=== PATIENT | female | born 1950 | race African-American/Black ===

== ENCOUNTER → 2018-07-28 | Outpatient (CLI) | payer MEDICARE, OTHER ==
[2013-08-14 09:00] VITALS: BP 202/77
[~2018-07-28] MED LIST: BYSTOLIC2.5 MG PO; BYSTOLIC5 MG PO; CLON0.1T PO; DOXY50CA PO; HYDR12.58 PO; KRIL1CAP29 PO; MULT1TAB52 PO; OMEG10005 PO; VIT500LI PO; ZOLP5TAB5 PO
--- NOTE | 2018-07-28 17:57 | RAD ---
Examination: US GUID NDL PLACE/ASPI/BX History: Right breast mass and right axillary lymph nodes. Comparison/Correlation: 07/04/2018 mammogram and ultrasound examinations of the right breast performed at an outside facility Findings: Risks and benefits of ultrasound-guided core biopsy were discussed with the patient. Informed consent was obtained. Prior to procedure, ultrasound imaging was performed for localization purposes of the right breast 11:30 mass. Ultrasound imaging of the right axilla also was performed to image the lymph nodes present. A few enlarged lymph nodes are present with thickened cortices. Consent was obtained from the patient to biopsy 3 of these lymph nodes. Cleansing with ChloraPrep was performed at the right upper outer breast and axilla. Sterile drapes, sterile gel, and sterile probe cover were utilized. Lateral post was utilized to biopsy the right breast 11:30 mass. Approximately 8 cc 1 percent lidocaine was administered via a lateral approach utilizing ultrasound guidance. Scalpel incision was made and an introducer was placed. 4 samples were obtained by core biopsy technique utilizing a 12-gauge needle. Clip marker was then placed under ultrasound guidance. 7 cc lidocaine was administered in the right axilla and a small scalpel incision was made for purposes of biopsying 3 lymph nodes present. A total of 2 separate introducers were utilized. A total of 3 separate core biopsy needles were utilized. 4 samples of the most inferior of the lymph nodes with a thickened cortex were obtained and biopsy clip marker was placed. 3 samples of a lymph node slightly superior and posterior to this were also obtained and clip marker was placed. A slightly more superior and anterior lymph node was biopsied with 2 samples obtained and a clip marker was placed. The patient tolerated the procedure well without immediate complications. Impression: Successful core biopsy of the right upper outer breast mass and the 3 most thickened and enlarged right axillary lymph nodes. Specimens were sent to lab in 4 separate vials. Electronically signed by: Vini Barajas MD (07/28/2018 5:54 PM) [facility]
--- NOTE | 2018-07-28 18:13 | RAD ---
DATE: 07/28/2018 EXAM: DIGITAL DIAGNOSTIC RT HISTORY: The patient has just undergone ultrasound-guided biopsy of a right breast upper outer quadrant mass and right axillary lymph nodes. This study was interpreted with the benefit of Computerized Aided Detection (CAD). Breast Density: SCATTERED The breast parenchyma shows scattered fibroglandular densities. Breast parenchyma level B. FINDINGS: Biopsy clip marker is present just medial to the right upper outer breast mass. All of the 3 right axillary lymph nodes and surgical clips could not be included on exam despite attempts at extraction. Contralateral view imaging and lateral medial view imaging. A single lymph node with the biopsy clip marker is noted on the mediolateral view at the far posterior axillary level. IMPRESSION: Biopsy clip marker is identified adjacent to the right upper quadrant outer quadrant mass and within the right axillary lymph node. BI-RADS CATEGORY: 4 SUSPICIOUS ABNORMALITY- BIOPSY SHOULD BE CONSIDERED RECOMMENDED FOLLOW-UP: BIO BIOPSY RECOMMENDED PQRS compliance statement: Patient information was entered into a reminder system with a target due date pending biopsy results for the next mammogram. Mammography is a sensitive method for finding small breast cancers, but it does not detect them all and is not a substitute for careful clinical examination. A negative mammogram does not negate a clinically suspicious finding and should not result in delay in biopsying a clinically suspicious abnormality. "Our facility is accredited by the [employer] Mammography Program."
--- NOTE | 2018-07-30 15:06 | PATHOLOGY ---
[facility] Accession Number: [id number] . 01 Material submitted: . PART A: breast - RIGHT BREAST NODULE, 11:30, 4CFN. Modifiers: right PART B: lymph node - RIGHT AXILLA LYMPH NODE #1. Modifiers: right, axilla, 1 PART C: lymph node - RIGHT AXILLA LYMPH NODE #2. Modifiers: right, axilla, 2 PART D: lymph node - RIGHT AXILLA LYMPH NODE #3. Modifiers: right, axilla, 3 . 01 Clinical history: . Right breast mass . 02 Diagnosis: A. Breast tissue, right breast mass 11:30 needle biopsies: - INVASIVE DUCTAL CARCINOMA, HIGH GRADE. SEE COMMENT. . B. Segments of lymph node and fibroadipose tissue, right axilla lymph node #1 ultrasound guided needle biopsies: - Negative for tumor. . C. Segments of fibroadipose tissue, right axilla lymph node #2 ultrasound guided needle biopsies: - No lymph node identified - negative for tumor. . D. Segments of fibroadipose tissue and lymph node, right axilla lymph node #3 ultrasound guided needle biopsies: - Negative for tumor. [facility]/07/30/2018 . 02 Comment: Sections of the right breast mass needle biopsies reveal an invasive mammary carcinoma. The tumor shows little tubule formation, moderate to marked nuclear pleomorphism, and focally marked mitotic activity. There is a rare tumor associated calcification. There is no lymphovascular tumor invasion. The invasive carcinoma is associated with an inflamed reactive desmoplastic stroma, and measures up to 0.7 cm in greatest dimension on the glass slide. The morphologic findings are supportive of the diagnosis of an invasive high grade ductal carcinoma. Breast prognostic studies will be obtained on block A1, the results of which will be reported separately. . The axillary lymph node needle biopsies are examined at multiple levels. Sections of axillary lymph node #2 reveal fibroadipose tissue with no lymph node identified. Immunoperoxidase stains for AE1/AE3 are obtained on axillary lymph node #1 and axillary lymph node #3 needle biopsies and yield the following results: . AE1/AE3 (B1): Negative for tumor AE1/AE3 (B2): Negative for tumor AE1/AE3 (D1): Negative for tumor . Thus, there are a total of two axillary lymph nodes, both of which are negative for tumor. . The case is also examined by Dr. Ibarra, who concurs with the diagnoses. . (JPM/db; 07/29/2018) . Special stain performed: Immunoperoxidase stain for AE1/AE3 on B1, B2 and D1 . 02 Electronically signed: . Zeke Holliday MD, Pathologist NPI- [id number] . 01 Gross description: . A. Received in formalin labeled "Jelly Costa, right breast 11:30 4CFN," are multiple needle cores of yellow-anand fibrofatty tissue measuring 1.8 x 0.9 x 0.3 cm in aggregate dimensions. The tissue is submitted in its entirety in cassette A1 through A3. The cold ischemic time is 2 minutes. The total formalin fixation time is 10 hours and 28 minutes. . B. Received in formalin labeled "Jelly Costa, right axilla LN 1," are multiple needle cores of yellow-anand fibrofatty tissue measuring 2.2 x 1.0 x 0.3 cm in aggregate dimensions. The tissue is submitted in its entirety in cassette B1 through B3. The cold ischemic time is 5 minutes. The total formalin fixation time is 10 hours and 15 minutes. . C. Received in formalin labeled "Jelly Costa, right axilla LN 2," are multiple needle cores of yellow-anand fibrofatty tissue measuring 1.5 x 0.8 x 0.2 cm in aggregate dimensions. The tissue is submitted in its entirety in cassette C1 through C3. The cold ischemic time is 5 minutes. The total formalin fixation time is approximately 10 hours. . D. Received in formalin labeled "Jelly Costa, right axilla LN 3," are multiple needle cores of yellow-anand fibrofatty tissue measuring 1.3 x 0.6 x 0.3 cm in aggregate dimensions. The tissue is submitted in its entirety in cassette D1 through D3. The cold ischemic time is 5 minutes. The total formalin fixation time is approximately 10 hours. ([facility]; 07/28/2018) TOB/TOB . 02 Pathologist provided ICD-10: C50.911 . 02 CPT . 233007, 636265, 840304, 364349, E91995 Specimen Comment: A courtesy copy of this report has been sent to Specimen Comment: [phone], . Specimen Comment: Report sent to / DR GUERRA [facility]formed at: 01 [facility] [address] [facility] [address], [place] [id number] MD Percy Preston MD Phone: [phone] Performed at: 02 [facility] [address] [place], [place] [id number] MD Zeke Holliday MD Phone: [phone]
== END | disposition home or self-care (01) ==
LOC: US 09:35
PROVIDERS: ATTEND Family Medicine
DX: C50.411 Malignant neoplasm of upper-outer quadrant of right female breast (principal)
CPT/HCPCS: 19083; 38505; 77065; 88305; 88342; 88361; C1713; 19081; 76942

== ENCOUNTER → 2018-08-19 | Outpatient (CLI) | payer MEDICARE, OTHER ==
[2013-08-14 09:00] VITALS: BP 202/77
[2018-08-19 15:10] LABS: BASO % 0 % (0-3); EOS # 0.1 x10^3/uL (0.0-0.7); EOS % 1 % (0-3); HEMATOCRIT 42.8 % (36.0-47.0); HEMOGLOBIN 14.3 g/dL (12.0-15.5); LYMPH # 4.6 x10^3/uL (1.0-4.8); LYMPH % 36 % (24-48); MEAN CORPUSCULAR HEMOGLOBIN 30 pg (25-35); MEAN CORPUSCULAR HGB CONC 33 g/dL (31-37); MEAN CORPUSCULAR VOLUME 90 fL (79-100); MONO # 0.9 x10^3/uL (0.0-1.1); MONO % 7 % (0-9); NEUT # 7.1 x10^3uL (1.8-7.7); NEUT % 56 % (31-73); PLATELET COUNT 337 x10^3/uL (140-400); RED BLOOD COUNT 4.76 x10^6/uL (3.50-5.40); WHITE BLOOD COUNT 12.7 x10^3/uL (4.0-11.0)
[2018-08-19 15:35] LABS: ALBUMIN 4.1 g/dL (3.4-5.0); CALCIUM 10.2 mg/dL (8.5-10.1); GFR 66.3; POTASSIUM 3.6 mmol/L (3.5-5.1)
== END | disposition home or self-care (01) ==
LOC: SURGPAT 14:09
PROVIDERS: ATTEND Surgery
DX: Z01.818 Encounter for other preprocedural examination (principal); C50.911 Malignant neoplasm of unspecified site of right female breast
CPT/HCPCS: 36415; 80048; 82040; 85025

== ENCOUNTER 2018-08-26 08:54 | Inpatient (IN) | payer MEDICARE, OTHER ==
[2018-08-26] VITALS (10 sets, daily range): BP systolic 126–165; BP diastolic 43–65
[~2018-08-26] VITALS: Ht 175.3 cm; Wt 100.2 kg
[~2018-08-26 08:54] MED LIST changes: +HYDROmorphone 2 MG/ML VIAL IV PRN; +ISOSULFAN BLUE 50 MG/5 ML VIAL. SQ ONE; +IV RINGERS,LACTATED 1000ML 1,000 ML IV SCH; +MORPHINE SULFATE 2 MG/ML VIAL. IV PRN; +ONDANSETRON PF 4 MG/2 ML VIAL. IV PRN; +PROCHLORPERAZINE 10 MG/2 ML VIAL. IV PRN; +ceFAZolin 2GM PREMIX 2 GM/50 ML BAG IV ONE; +fentaNYL PF VIAL 100 MCG/2 ML VIAL IV PRN
[2018-08-26] MEDS ORDERED: fentaNYL PF VIAL 100 MCG/2 ML VIAL ONE ×3 (09:57→13:15)
[2018-08-26] MEDS ORDERED: LIDOCAINE 2% PF 5 ML VIAL. ONE (09:58)
[2018-08-26] MEDS ORDERED: DEXAMETHASONE SOD PHOS 4 MG/ML VIAL ONE (09:58)
[2018-08-26] MEDS ORDERED: MIDAZOLAM HCL/PF 2 MG/2 ML VIAL. ONE (09:58)
[2018-08-26] MEDS ORDERED: ONDANSETRON PF 4 MG/2 ML VIAL. ONE (09:58)
[2018-08-26] MEDS ORDERED: PROPOFOL 20 ML IV ONE (09:58)
--- NOTE | 2018-08-26 10:50 | RAD ---
Right breast radionuclide sentinel node localization, 08/26/2018: History: Right breast cancer. Under aseptic conditions and utilizing ethyl chloride spray for topical anesthesia a total of 1 mCi of filtered technetium 99m sulfur colloid was injected subdermally in the right periareolar region in 4 divided doses. No imaging was performed. The patient was sent to surgery in good condition.
[2018-08-26] MEDS ORDERED: ONDANSETRON PF 4 MG/2 ML VIAL. IV PRN (13:00)
[2018-08-26] MEDS ORDERED: cloNIDine HCL 0.1 MG TABLET PO PRN (13:00)
[2018-08-26] MEDS ORDERED: diphenhydrAMINE HCL 25 MG CAPSULE PO PRN (13:00)
[2018-08-26] MEDS ORDERED: ZOLPIDEM 5 MG TABLET. PO PRN (13:00)
[2018-08-26] MEDS ORDERED: HYDROcodone/APAP 5/325MG 1 TAB TABLET PO PRN (13:00)
[2018-08-26] MEDS ORDERED: HYDROmorphone 2 MG/ML VIAL IV PRN (13:00)
[2018-08-26] MEDS ORDERED: 0.9 % SODIUM CHLORIDE 10 ML DISP.SYRIN. IV PRN (13:00)
--- NOTE | 2018-08-26 13:01 | PDOC ---
BRIEF OPERATIVE NOTE Date: August 26, 2018 Pre-Op Diagnosis invasive carcinoma right breast Post-Op Diagnosis same Procedure Performed modified radical mastectomy Surgeon Jimmy Anesthesia Type: General Blood Loss 50cc IV Fluid 600cc Specimens Obtained right breast, stitch at 3:00 right axillary contents Findings no sentinel node identified Complications none BRIAN ARAGON MD August 26, 2018 13:01
[2018-08-26] MEDS ORDERED: LABETALOL 20 MG/4 ML DISP.SYRIN. IVP PRN (13:30)
--- NOTE | 2018-08-26 13:36 | OP ---
DATE OF SURGERY: 08/26/2018 PREOPERATIVE DIAGNOSIS: Invasive carcinoma, right breast. POSTOPERATIVE DIAGNOSIS: Invasive carcinoma, right breast. PROCEDURE: Modified radical mastectomy. SURGEON: Brian Aragon MD. ANESTHESIA: General LMA. ESTIMATED BLOOD LOSS: 50 mL. INTRAVENOUS FLUIDS: 600 mL. OPERATIVE REPORT: The patient brought to the operating suite after going to nuclear medicine for injection of radioisotope for sentinel node. She was brought to the OR, given a general LMA and the right breast, arm and chest were prepped and draped in usual sterile fashion. A 4 mL of Lymphazurin were injected intradermally, circumareolarly in the quadrant corresponding to that of the tumor. Gentle breast massage for 4 minutes. A marking pen was used to outline the elliptical skin incision on the breast and the superior skin flap was incised and developed with cautery dissection down to the chest wall. We followed the tail of the breast up into the axilla, but despite careful searching, no blue stained nodes were seen nor was there any activity with the C-Trak. As such, the inferior skin flap was made, developed with cautery and the breast swept off the chest wall from medial to lateral. Because I was unable to identify sentinel node, I proceeded with an axillary dissection. The contents of the axilla inferior to the axillary vein were swept out en bloc taking care to avoid injury to the thoracodorsal neurovascular bundle or the long thoracic nerve. Good hemostasis was present. When a correct sponge count was obtained, 2 drains were placed. The lateral drain into the axilla, the medial drain under the superior skin flap. Each secured with a silk stitch and again we checked for hemostasis. When present and a second sponge count was correct, the wound was closed with interrupted inverted 3-0 Vicryl in the subcutaneous tissue, subcuticular 4-0 Monocryl for the skin. Sterile dressing applied. The patient awakened from her anesthetic and taken to the recovery room in satisfactory condition. BRIAN ARAGON MD DR: MARLON/gumaro JOB#: [id number] / [id number]
[2018-08-26] MEDS: POTASSIUM CL 20MEQ-0.45% NACL 1,000 ML IV SCH (16:36)
[2018-08-26] MEDS: HYDROcodone/APAP 5/325MG 1 TAB TABLET PO PRN ×2 (17:28→20:53)
[2018-08-26] MEDS: DOCUSATE SODIUM 100 MG CAPSULE. PO SCH (20:51)
[2018-08-26] MEDS: METOPROLOL TART IMMED RELEASE 25 MG TABLET. PO SCH (20:53)
[2018-08-26] MEDS ORDERED: DOXYCYCLINE HYCLATE 20 MG PO SCH (21:00)
[2018-08-27] MEDS: POTASSIUM CL 20MEQ-0.45% NACL 1,000 ML IV SCH ×2 (00:09→10:00)
--- NOTE | 2018-08-27 00:12 | NUR ---
906.31 ml on IV spreadsheet from 0011 was for IVF given during day shift. IVF still running. This nurse scanned next bag of IVF.
[2018-08-27 03:37] VITALS: BP 130/45
[2018-08-27 07:00] VITALS: BP 177/55
[2018-08-27 08:02] LABS: CALCIUM 8.5 mg/dL (8.5-10.1); CREATININE 0.7 mg/dL (0.6-1.0); GFR 100.1; POTASSIUM 3.6 mmol/L (3.5-5.1)
[2018-08-27] MEDS ORDERED: FUROSEMIDE 20 MG TABLET PO SCH (09:00)
[2018-08-27] MEDS ORDERED: ENOXAPARIN 40 MG/0.4 ML SYRINGE. SQ SCH (09:00)
[2018-08-27] MEDS: METOPROLOL TART IMMED RELEASE 25 MG TABLET. PO SCH (09:15)
[2018-08-27] MEDS: DOCUSATE SODIUM 100 MG CAPSULE. PO SCH (09:15)
--- NOTE | 2018-08-27 09:40 | PDOC ---
SURGICAL PROGRESS NOTE Subjective no complaints at bedside Vital Signs Vital Signs Date Time Temp Pulse Resp B/P (MAP) Pulse Ox O2 Delivery O2 Flow Rate FiO2 08/27/18 09:15 72 177/55 08/27/18 07:00 97.9 18 98 Room Air 97.9 08/26/18 17:28 10.0 I&O Intake and Output 08/27/18 07:00 Intake Total 2036.31 ml Output Total 230 ml Balance 1806.31 ml Intake Oral 480 ml IV Total 1556.31 ml Drainage Total 180 ml Estimated Blood Loss 50 ml # Voids 1 PATIENT HAS A ROSENTHAL: No General: Alert, Oriented X3, No acute distress Skin: Other (GUILLE drains, one with bloody return, one with serosanguineous) Labs Laboratory Tests Test 08/26/18 13:47 08/26/18 17:09 08/26/18 21:04 08/27/18 06:45 Glucose (Fingerstick) 125 mg/dL (70-99) 158 mg/dL (70-99) 173 mg/dL (70-99) Sodium Level 140 mmol/L (136-145) Potassium Level 3.6 mmol/L (3.5-5.1) Chloride Level 104 mmol/L (98-107) Carbon Dioxide Level 26 mmol/L (21-32) Anion Gap 10 (6-14) Blood Urea Nitrogen 9 mg/dL (7-20) Creatinine 0.7 mg/dL (0.6-1.0) Estimated GFR (Cockcroft-Gault) 100.1 Glucose Level 140 mg/dL (70-99) Calcium Level 8.5 mg/dL (8.5-10.1) Test 08/27/18 07:38 Glucose (Fingerstick) 126 mg/dL (70-99) Laboratory Tests Test 08/26/18 13:47 08/26/18 17:09 08/26/18 21:04 08/27/18 06:45 Glucose (Fingerstick) 125 mg/dL (70-99) 158 mg/dL (70-99) 173 mg/dL (70-99) Sodium Level 140 mmol/L (136-145) Potassium Level 3.6 mmol/L (3.5-5.1) Chloride Level 104 mmol/L (98-107) Carbon Dioxide Level 26 mmol/L (21-32) Anion Gap 10 (6-14) Blood Urea Nitrogen 9 mg/dL (7-20) Creatinine 0.7 mg/dL (0.6-1.0) Estimated GFR (Cockcroft-Gault) 100.1 Glucose Level 140 mg/dL (70-99) Calcium Level 8.5 mg/dL (8.5-10.1) Test 08/27/18 07:38 Glucose (Fingerstick) 126 mg/dL (70-99) Assessment/Plan POD 1 right MRM home with drains f/u in office, two days BRIAN ARAGON MD August 27, 2018 09:40
--- NOTE | 2018-08-27 09:43 | DISCH ---
DISCHARGE INSTRUCTIONS Condition on Discharge Condition on Discharge: Stable Activity After Discharge Activity Instructions for Disc: Activity as tolerated Lifting Instructions after Dis: No heavy lifting Driving Instructions after Dis: Do not drive Diet after Discharge Diet after Discharge: Regular Wound Incision Care Wound/Incision Care: Ice to area for comfort Follow-Up Follow up with: Jimmy 08/29 BRIAN ARAGON MD August 27, 2018 09:43
--- NOTE | 2018-08-27 10:29 | NUR ---
SW following for discharge planning. Discussed with RN, pt is from home with , gets around fine. RN advised no SW needs and anticipates pt is discharging home with self care today, and will follow up with Dr. Marquez on Saturday.
[2018-08-27 11:00] VITALS: BP 176/53
[2018-08-27] MEDS: HYDROcodone/APAP 5/325MG 1 TAB TABLET PO PRN (13:41)
--- NOTE | 2018-08-27 16:46 | NUR ---
Pt was discharged to home at 1330 in stable condition with all personal belongings after reviewing all pertinent information including education, medications, follow up and at home care. Pt was escorted by staff and family and driven home by her .
--- NOTE | 2018-09-02 14:06 | PATHOLOGY ---
[facility] Accession Number: [id number] . 01 Material submitted: . PART A: breast - RIGHT BREAST. Modifiers: right PART B: axillary tail of breast - RIGHT AXILLARY CONTENT. Modifiers: right . 01 Clinical history: . Breast cancer . 02 Diagnosis: A. Breast, right simple mastectomy: - INVASIVE DUCTAL CARCINOMA, HIGH-GRADE, FORMING A TUMOR MASS OF THE UPPER OUTER QUADRANT MEASURING 2.1 CM IN GREATEST DIMENSION. - INVASIVE DUCTAL CARCINOMA IS FOCALLY 1.5 MM FROM THE CLOSEST INKED DEEP MARGIN OF RESECTION. - DUCTAL CARCINOMA IN SITU, LOW TO FOCAL INTERMEDIATE GRADE, CRIBRIFORM AND SOLID TYPE, MEDIAL TO MASS. - DCIS IS APPROXIMATELY 5 MM FROM THE CLOSEST INKED DEEP MARGIN OF RESECTION. - Previous biopsy site changes. - Proliferative fibrocystic changes with focal moderate/florid ductal epithelial hyperplasia. - Sclerosing adenosis, focal. - Fibroadenomatous change, focal. . B. Segments of adipose tissue and lymph nodes, right axillary contents: - Nine lymph nodes negative for tumor and showing focal previous biopsy site changes (0/9). (JPM:director of counseling:db; 08/29/2018) . Surgical Pathology Cancer Case Summary Protocol posting date: May 2018 . INVASIVE CARCINOMA OF THE BREAST: Resection Procedure ___ Total mastectomy (including nipple-sparing and skin-sparing mastectomy) Specimen Laterality ___ Right . Tumor Site ___ Upper outer quadrant Tumor Size ___ Greatest dimension of largest invasive focus >1 mm: 21 mm Histologic Type ___ Invasive carcinoma of no special type (invasive ductal carcinoma, not otherwise specified) . Histologic Grade ([place] Histologic Score) Glandular (Acinar)/Tubular Differentiation ___ Score 3 (<10% of tumor area forming glandular/tubular structures) Nuclear Pleomorphism ___ Score 2 (cells larger than normal with open vesicular nuclei, visible nucleoli, and moderate variability in both size and shape) Mitotic Rate ___ Score 3 Overall Grade ___ Grade 3 (scores of 8 or 9) . Tumor Focality ___ Single focus of invasive carcinoma Ductal Carcinoma In Situ (DCIS) ___ Present . Architectural Patterns ___ Cribriform ___ Solid . Nuclear Grade ___ Grade II (intermediate) Necrosis ___ Present, focal (small foci or single cell necrosis) Lobular Carcinoma In Situ (LCIS) ___ No LCIS in specimen . Margins Invasive Carcinoma Margins ___ Uninvolved by invasive carcinoma Distance from closest margin: 1.5 mm Specify closest margin: Deep margin DCIS Margins ___ Uninvolved by DCIS Distance from closest margin: 5 mm Specify closest margin: Deep margin . Regional Lymph Nodes ___ Uninvolved by tumor cells Number of Lymph Nodes Examined: 9 Number of Sherman Nodes Examined: 0 Treatment Effect ___ No known presurgical therapy Lymphovascular Invasion ___ Not identified Dermal Lymphovascular Invasion ___ Not identified . Pathologic Stage Classification (pTNM, AJCC 8th Edition) Primary Tumor (pT) ___ pT2: Tumor >20 mm but less than or equal to 50 mm in greatest dimension . Regional Lymph Nodes (pN) Category (pN) ___ pN0: No regional lymph node metastasis identified . Additional Pathologic Findings Specify: See diagnoses . Microcalcifications ___ Present in DCIS . Clinical History ___ Palpable mass . Radiologic Finding ___ Mass or architectural distortion (JPM/db; 08/29/2018) . [facility]/09/02/2018 . 02 Electronically signed: . Zeke Holliday MD, Pathologist NPI- [id number] . 01 Gross description: . A. Received in formalin labeled" Jelly Costa, right breast, stitch at 3:00 ", is an oriented right simple mastectomy specimen weighing 564 g and measuring 22.5 x 15 x 4.0 cm, with an overlying bruner-brown ellipse of skin, 21.5 x 10.5 cm containing a 5.7 x 5.0 cm nipple-areola complex with a 1.2 cm in diameter everted nipple. The deep margin is covered by smooth fascia with no skeletal muscle present. The specimen is oriented with sutures: Marking the 3 o'clock position. The specimen is inked as follows: anterior/superior = blue, anterior/inferior = green and deep black. Specimen is serial sectioned from lateral to medial to reveal a anand-white solid mass with previous biopsy changes consisting of white seeds, with infiltrative borders measuring 2.1 x 1.4 x 1.0 cm in the upper outer quadrant at 1130, and is approximately 4 cm from the nipple and is 0.4 cm from the closest deep margin and greater than 2.5 cm from the remaining margins. The remaining parenchyma is predominantly yellow, soft fatty tissue with anand-white fibrous strands interspersed in the approximate stroma-fat ratio of 80:20. (Cassettes A2-A9 are contiguous sections from medial to lateral to include mass). Senior Case Manager tissue is submitted as follows: A1. Skin and nipple. A2. Uninvolved parenchyma on the medial aspect of mass. A3-A8. Mass (greatest dimension), A7 = mass closest to deep margin. A9. Uninvolved parenchyma on the lateral aspect of mass. A10. Superior anterior margin closest to mass. A11. Inferior anterior margin closest to mass. A12. Superior margin closest to mass. A13. Inferior margin closest to mass. A14. Medial margin closest to mass. A15. Lateral margin closest to mass. A16 - A17. Upper inner quadrant. A18-A19. Lower inner quadrant. A20-A21. Lower outer quadrant. A22-A23. Upper outer quadrant. Specimen excised at: 1154 on 08/26/18, placed in formalin at: 1155 on 08/26/18, formalin exposure: Approximately 35 hours. . B. The specimen is received in formalin, labeled "Jelly Costa, right axillary contents", are multiple irregular fragments of yellow lobulated adipose tissue measuring 9.0 x 7.8 x 2.7 cm in aggregate. Eight possible positive, bruner-pink, rubbery lymph nodes are identified ranging from 1.1 x 0.7 x 0.5 cm up to 2.4 x 1.7 x 0.8 cm. There are three lymph nodes with hemorrhagic, cystic, focal areas, probable previous biopsy site. The lymph nodes are entirely submitted as follows: B1-B2. Single lymph node, serially sectioned with possible previous biopsy site. B3. Single lymph node, serially sectioned with possible previous biopsy site. B4. Single lymph node, serially sectioned with possible previous biopsy site. B5-B8. Single lymph node, serially sectioned in each cassette. B9. Two lymph nodes, serially sectioned, one inked black. ([facility]; 08/27/2018) SHS/SHS . 02 Pathologist provided ICD-10: C50.911, D05.11 . 02 CPT . 675267, 177524 Specimen Comment: A courtesy copy of this report has been sent to Specimen Comment: [phone], . Specimen Comment: Report sent to / DR GUERRA Performed at: 01 [facility] [address] [facility] [address], [place] [id number] MD Percy Preston MD Phone: [phone] Performed at: [address] [facility] [address] [place], [place] [id number] MD Zeke Holliday MD Phone: [phone]
== END 2018-08-27 13:30 | disposition home or self-care (01) | DRG 583 ==
LOC: SURG 08:54 → 4 NORTH 13:00
PROVIDERS: ADMIT Surgery; ATTEND Surgery
PROC: 0HTT0ZZ Resection of Right Breast, Open Approach (ICD-10-PCS; principal; 2018-08-26 10:30)
DX: C50.911 Malignant neoplasm of unspecified site of right female breast (principal); I10 Essential (primary) hypertension; E11.9 Type 2 diabetes mellitus without complications
CPT/HCPCS: 36415; 38792; 80048; 82962; 88307; 96374; A7015; A9541; J0696; J1100; J1650; J2001; J2250; J2270; J2405; J2704; J3010; J3490; J7120; Q9968

== ENCOUNTER 2018-08-30 06:07 | Emergency (ER) | payer MEDICARE, OTHER ==
[~2018-08-30] VITALS: Ht 180.3 cm; Wt 100.2 kg
[~2018-08-30 06:07] MED LIST changes: -HYDROmorphone 2 MG/ML VIAL IV PRN; -ISOSULFAN BLUE 50 MG/5 ML VIAL. SQ ONE; -IV RINGERS,LACTATED 1000ML 1,000 ML IV SCH; -MORPHINE SULFATE 2 MG/ML VIAL. IV PRN; -ONDANSETRON PF 4 MG/2 ML VIAL. IV PRN; -PROCHLORPERAZINE 10 MG/2 ML VIAL. IV PRN; -ceFAZolin 2GM PREMIX 2 GM/50 ML BAG IV ONE; -fentaNYL PF VIAL 100 MCG/2 ML VIAL IV PRN
[2018-08-30 06:28] VITALS: BP 197/99
--- NOTE | 2018-08-30 06:56 | PHYS DOC ---
Past Medical History Past Medical History: Diabetes-Type II Past Surgical History: Hysterectomy Alcohol Use: Occasionally Drug Use: None Adult General Chief Complaint Chief Complaint: POST-OP PROBLEM HPI HPI Patient is a 68 year old AA female who is s/p R mastectomy post-op day 5 who presents with displacement of GUILLE drain. Patient states she twisted this morning and felt a sharp sensation noticed that her GUILLE came out. Patient reports only minimal bleeding from drain insertion site in had decreased reports approximately 2 ounces of output over the past 24 hours. Patient and plans on having drain pulled on Saturday per Dr. Marquez. No other significant acute symptoms or complaints. [] Review of Systems Review of Systems ROS as per HPI All other systems were reviewed and found to be within normal limits, except as documented in this note. Allergies Allergies Allergies Coded Allergies Type Severity Reaction Last Updated Verified lidocaine Allergy Intermediate Rash 08/26/18 Yes Physical Exam Physical Exam Constitutional: Well developed, well nourished, no acute distress, non-toxic appearance. [] HENT: Normocephalic, atraumatic, bilateral external ears normal, oropharynx moist, no oral exudates, nose normal. [] Eyes: PERRLA, EOMI, conjunctiva normal, no discharge. [] Lungs & Thorax: Bilateral breath sounds clear to auscultation [] Skin: Right chest wall, GUILLE drain insertion wound open, min right red blood on overlying bandage, bleeding controlled. Appropriate post-op tenderness. [] Back: No tenderness. [] Extremities: No tenderness, no cyanosis, no clubbing, ROM intact, no edema. [] Neurologic: Alert and oriented X 3, normal motor function, normal sensory function, no focal deficits noted. [] Psychologic: Affect normal, judgement normal, mood normal. [] Current Patient Data Vital Signs Vital Signs Date Time Temp Pulse Resp B/P (MAP) Pulse Ox O2 Delivery O2 Flow Rate FiO2 08/30/18 06:28 98.2 82 17 197/99 (131) 98 Room Air 98.2 EKG EKG [] Radiology/Procedures Radiology/Procedures [] Course & Med Decision Making Course & Med Decision Making Pertinent Labs and Imaging studies reviewed. (See chart for details) [Dr. Sullivan fabrication and layout craftsman for Dr. Marquez notified of patient ED visit. Patient to keep follow up appt with Dr. Marquez as scheduled and return to the ED if complications. ] Akhil Disclaimer Dragon Disclaimer This electronic medical record was generated, in whole or in part, using a voice recognition dictation system. Departure Departure Impression: Primary Impression: Post-operative complication Disposition: 01 HOME, SELF-CARE Condition: GOOD Additional Instructions: Please keep mastectomy site bandaged and follow up with Dr. Marquez as scheduled. Return to the ED if furhter concerns. DENA BLACK DO August 30, 2018 06:56
== END 2018-08-30 06:45 | disposition home or self-care (01) ==
LOC: ER 06:07
DX: T85.698A Other mechanical complication of other specified internal prosthetic devices, implants and grafts, initial encounter (principal); E11.9 Type 2 diabetes mellitus without complications; E78.00 Pure hypercholesterolemia, unspecified; Z90.11 Acquired absence of right breast and nipple; Z88.4 Allergy status to anesthetic agent; Y83.8 Other surgical procedures as the cause of abnormal reaction of the patient, or of later complication, without mention of misadventure at the time of the procedure; Y92.89 Other specified places as the place of occurrence of the external cause
CPT/HCPCS: 99281

== ENCOUNTER → 2018-09-23 | Outpatient (CLI) | payer MEDICARE, OTHER ==
[2018-09-22 09:15] VITALS: BP 159/50
[~2018-09-23] MED LIST changes: +HYDR-2761 PO
--- NOTE | 2018-09-23 13:13 | CARD ---
MR#: [id number] Date of Study: 09/23/2018 Ordering Physician: IDA BABCOCK, Referring Physician: IDA BABCOCK Tech: Sendy Hernandez RDCS APPROVED REPORT EXAM: Two-dimensional and M-mode echocardiogram with Doppler and color Doppler. Other Information Quality : AverageHR: 76bpm Rhythm : NSR INDICATION Breast Cancer 2D DIMENSIONS RVDd2.8 (2.9-3.5cm)Left Atrium(2D)4.0 (1.6-4.0cm) IVSd1.0 (0.7-1.1cm)Aortic Root(2D)3.0 (2.0-3.7cm) LVDd5.9 (3.9-5.9cm)LVOT Diameter1.9 (1.8-2.4cm) PWd0.9 (0.7-1.1cm)LVDs4.3 (2.5-4.0cm) FS (%) 27.1 %SV88.9 ml LVEF(%)52.0 (>50%) M-Mode DIMENSIONS Left Atrium(MM)4.17 (2.5-4.0cm)Aortic Root2.88 (2.2-3.7cm) Aortic Valve AoV Peak Cm.104.8cm/sAoV VTI22.2cm AO Peak GR.4.4mmHgLVOT Peak Cm.85.0cm/s AO Mean GR.2mmHgAVA (VMAX)2.39cm2 MAGDI (VTI)2.40cm2 Mitral Valve MV E Xzfzyfdn834.8cm/sMV DECEL IIQT972mz MV A Sczkjxxq88.8cm/sE/A Ratio1.4 Pulmonary Valve PV Peak Ivoaywpc94.0cm/s LEFT VENTRICLE The left ventricle is normal size. There is normal left ventricular wall thickness. Left ventricle sy stolic function is normal. The Ejection Fraction is 50-55%. There is normal LV segmental wall motion. Transmitral Doppler flow pattern is Grade II-pseudonormal filling dynamics. RIGHT VENTRICLE The right ventricle is normal size. There is normal right ventricular wall thickness. The right ventr icular systolic function is normal. ATRIA The left atrium is mildly dilated. The right atrium size is normal. The interatrial septum is intact with no evidence for an atrial septal defect or patent foramen ovale as noted on 2-D or Doppler imagi ng. AORTIC VALVE The aortic valve is calcified but opens well. The aortic valve is trileaflet. Doppler and Color Flow revealed no significant aortic regurgitation. There is no significant aortic valvular stenosis. There is no aortic valvular vegetation. MITRAL VALVE The mitral valve is normal in structure and function. There is no evidence of mitral valve prolapse. There is no mitral valve stenosis. Doppler and Color-flow revealed mild mitral regurgitation. TRICUSPID VALVE The tricuspid valve is normal in structure and function. Doppler and Color Flow revealed no tricuspid valve regurgitation noted. There is no tricuspid valve prolapse or vegetation. There is no tricuspid valve stenosis. PULMONIC VALVE Doppler and Color Flow revealed trace pulmonic valvular regurgitation. There is no pulmonic valvular stenosis. GREAT VESSELS The aortic root is normal in size. The ascending aorta is normal in size. The IVC is normal in size a nd collapses >50% with inspiration. PERICARDIAL EFFUSION There is no evidence of significant pericardial effusion. Critical Notification Critical Value: No <Conclusion> Left ventricle systolic function is normal. The Ejection Fraction is 50-55%. There is normal LV segmental wall motion. Doppler and Color-flow revealed mild mitral regurgitation. Normal global longitudinal strain rates. Signed by : Charlie Dowling, Electronically Approved : 09/23/2018 13:12:54
== END | disposition home or self-care (01) ==
LOC: ECHO 09:34
PROVIDERS: ATTEND Internal Medicine Hematology & Oncology
DX: I08.0 Rheumatic disorders of both mitral and aortic valves (principal); C50.911 Malignant neoplasm of unspecified site of right female breast
CPT/HCPCS: 93306

== ENCOUNTER 2018-11-03 08:39 | Day surgery (SDC) | payer MEDICARE, OTHER ==
[~2018-11-03] VITALS: Ht 175.3 cm; Wt 91.6 kg
[~2018-11-03 08:39] MED LIST changes: +HEPARIN SODIUM 5,000 UNIT in IV NORMAL SALINE 500ML BAG 500 ML IRR ONE; +HYDR25TA10 PO; +HYDROmorphone 2 MG/ML VIAL IV PRN; +IV RINGERS,LACTATED 1000ML 1,000 ML IV SCH; +MORPHINE SULFATE 2 MG/ML VIAL. IV PRN; +NEOMY/BACITR/POLYMYXIN OINT PACKET. TP ONE; +ONDANSETRON PF 4 MG/2 ML VIAL. IV PRN; +PROCHLORPERAZINE 10 MG/2 ML VIAL. IV PRN; +fentaNYL PF VIAL 100 MCG/2 ML VIAL IV PRN
[2018-11-03] MEDS ORDERED: PROPOFOL 20 ML IV ONE (08:46)
[2018-11-03] MEDS ORDERED: DEXAMETHASONE SOD PHOS 4 MG/ML VIAL ONE (08:46)
[2018-11-03] MEDS ORDERED: ONDANSETRON PF 4 MG/2 ML VIAL. ONE (08:46)
[2018-11-03] MEDS ORDERED: fentaNYL PF VIAL 100 MCG/2 ML VIAL ONE (08:47)
[2018-11-03] MEDS ORDERED: BUPIVAC MPF-EPI 0.5%-1:200000 30 ML VIAL. ONE (08:59)
[2018-11-03] MEDS ORDERED: BUPIVACAINE MPF 0.5% 30 ML VIAL. ONE (08:59)
[2018-11-03] MEDS ORDERED: ceFAZolin 2GM PREMIX 2 GM/50 ML BAG IV ONE (09:00)
[2018-11-03 09:48] LABS: BASO % 1 % (0-3); EOS % 0 % (0-3); HEMATOCRIT 36.2 % (36.0-47.0); LYMPH # 1.7 x10^3/uL (1.0-4.8); LYMPH % 18 % (24-48); MEAN CORPUSCULAR HEMOGLOBIN 30 pg (25-35); MEAN CORPUSCULAR HGB CONC 33 g/dL (31-37); MEAN CORPUSCULAR VOLUME 90 fL (79-100); MONO # 0.4 x10^3/uL (0.0-1.1); MONO % 5 % (0-9); NEUT # 7.1 x10^3/uL (1.8-7.7); NEUT % 77 % (31-73); PLATELET COUNT 239 x10^3/uL (140-400); RED BLOOD COUNT 4.03 x10^6/uL (3.50-5.40); WHITE BLOOD COUNT 9.3 x10^3/uL (4.0-11.0)
[2018-11-03 09:58] LABS: CALCIUM 9.3 mg/dL (8.5-10.1); CREATININE 0.8 mg/dL (0.6-1.0); GFR 85.8; POTASSIUM 3.6 mmol/L (3.5-5.1)
[2018-11-03 09:59] LABS: ALBUMIN 3.6 g/dL (3.4-5.0)
--- NOTE | 2018-11-03 11:09 | PDOC ---
BRIEF OPERATIVE NOTE Date: Nov 03, 2018 Pre-Op Diagnosis invasive breast cancer, needs venous access for chemotherapy Post-Op Diagnosis same Procedure Performed placement left subclavian power port Surgeon Jimmy Anesthesia Type: General (LMA) Blood Loss 5cc IV Fluid 100cc Specimens Obtained none Findings post op CXR shows tip of catheter in the SVC without evidence of a pneumothorax Complications none Operative Note Wk # [id number] BRIAN ARAGON MD Nov 03, 2018 11:09
--- NOTE | 2018-11-03 11:13 | RAD ---
Exam performed: One view chest. Indication: Post Port-A-Cath placement Date of Service: 11/03/2018 12:00 AM Comparison: None available. Single AP upright portable view chest findings: Cardiomediastinal silhouette is within upper limits of normal. There is a left-sided Port-A-Cath in place. No acute infiltrates, effusion or pneumothorax is detected. The bony structures are normal. Impression: No acute cardiopulmonary process is detected. Electronically signed by: Alexa Briseno MD (11/03/2018 11:10 AM) [place]
--- NOTE | 2018-11-03 11:20 | OP ---
DATE OF SURGERY: 11/03/2018 PREOPERATIVE DIAGNOSIS: Invasive carcinoma, left breast needs venous access for adjuvant chemotherapy. POSTOPERATIVE DIAGNOSIS: Invasive carcinoma, left breast needs venous access for adjuvant chemotherapy. PROCEDURE: Placement of a left subclavian PowerPort. SURGEON: Brian Aragon MD ANESTHESIA: General LMA. ESTIMATED BLOOD LOSS: 5 mL. INTRAVENOUS FLUIDS: 100 mL. DESCRIPTION OF PROCEDURE: The patient brought to the OR, given a general LMA and the left infraclavicular area was prepped and draped in usual sterile fashion. With the bed in Trendelenburg, 0.5% plain Marcaine was infiltrated a fingerbreadth below the clavicle at the junction of medial two-thirds and lateral one-third incision was made. A seeker needle used to identify the subclavian vein and a guidewire advanced under fluoroscopic observation into the superior vena cava. Pocket incision with local anesthetic, incised and developed. Catheter laid on the patient's chest with fluoro guidance, was cut to an appropriate length. Catheter was then tunneled from the insertion site to the pocket site where it was attached to the reservoir. The reservoir was seated in the pocket. Again, in Trendelenburg position under fluoroscopic observation, the dilator and sheath were passed over the wire. The wire was removed. The dilator was removed and the catheter was threaded through the sheath and the sheath was then removed. There was good flow into and out of the catheter at completion of placement. Table returned to level. Pocket incision closed with interrupted 3-0 Vicryl. Skin incisions closed with subcuticular 4-0 Monocryl and Steri-Strips. A right angle Bedoya needle administration set was used to access the reservoir. There was good blood return and the catheter flushed well. Sterile dressing applied. Postop upright chest x-ray showed the tip of the catheter to reside in superior vena cava without evidence of a pneumothorax. The patient tolerated the procedure well and was taken to the postoperative area in stable condition. BRIAN ARAGON MD DR: MARLON/gumaro JOB#: [id number] / [id number]
[2018-11-03 12:02] VITALS: BP 196/73
== END 2018-11-03 12:32 | disposition home or self-care (01) ==
LOC: SURG 08:39
PROVIDERS: ATTEND Surgery
DX: Z45.2 Encounter for adjustment and management of vascular access device (principal); C50.911 Malignant neoplasm of unspecified site of right female breast; I10 Essential (primary) hypertension; E11.9 Type 2 diabetes mellitus without complications; Z79.84 Long term (current) use of oral hypoglycemic drugs; Z79.2 Long term (current) use of antibiotics
CPT/HCPCS: 36415; 36561; 71045; 77001; 80048; 82040; 85025; A7015; C1788; J0696; J1100; J1644; J2405; J2704; J3010; J3490; J7040; 76000

== ENCOUNTER → 2019-02-03 | Outpatient (CLI) | payer MEDICARE, OTHER ==
[~2019-02-03] MED LIST changes: -HEPARIN SODIUM 5,000 UNIT in IV NORMAL SALINE 500ML BAG 500 ML IRR ONE; -HYDROmorphone 2 MG/ML VIAL IV PRN; -IV RINGERS,LACTATED 1000ML 1,000 ML IV SCH; -MORPHINE SULFATE 2 MG/ML VIAL. IV PRN; -NEOMY/BACITR/POLYMYXIN OINT PACKET. TP ONE; -ONDANSETRON PF 4 MG/2 ML VIAL. IV PRN; -PROCHLORPERAZINE 10 MG/2 ML VIAL. IV PRN; -fentaNYL PF VIAL 100 MCG/2 ML VIAL IV PRN
--- NOTE | 2019-02-03 10:24 | CARD ---
MR#: [id number] Date of Study: 02/03/2019 Ordering Physician: IDA BABCOCK, Referring Physician: Pooja SOUTH: Maribell Garcia APPROVED REPORT EXAM: Two-dimensional and M-mode echocardiogram with Doppler and color Doppler. Other Information Quality : Average INDICATION CVA/TIA Congestive Heart Failure Breast Cancer 2D DIMENSIONS RVDd2.6 (2.9-3.5cm)Left Atrium(2D)3.3 (1.6-4.0cm) IVSd1.2 (0.7-1.1cm)Aortic Root(2D)2.3 (2.0-3.7cm) LVDd4.7 (3.9-5.9cm)LVOT Diameter2.3 (1.8-2.4cm) PWd0.6 (0.7-1.1cm)LVDs2.3 (2.5-4.0cm) FS (%) 52.0 %SV85.0 ml LVEF(%)83.2 (>50%) Aortic Valve AoV Peak Cm.107.5cm/sAoV VTI18.2cm AO Peak GR.4.6mmHgLVOT Peak Cm.90.8cm/s AO Mean GR.3mmHgAVA (VMAX)3.51cm2 Mitral Valve MV E Qkctlapv33.1cm/sMV E Peak Gr.3mmHg MV DECEL CKLO074agAZ A Rrujvpxx23.9cm/s MV E Mean Gr.2mmHgE/A Ratio0.9 Pulmonary Valve PV Peak Wtgitzwb266.2cm/s Tricuspid Valve RAP HCIJYQUR1ywPg Pulmonary Vein S1 Odqzvrcl90.8cm/sD2 Btworoni11.6cm/s LEFT VENTRICLE The left ventricle is normal size. There is borderline to mild concentric left ventricular hypertroph y. The left ventricular systolic function is normal. The Ejection Fraction is 60-65%. There is normal LV segmental wall motion. Transmitral Doppler flow pattern is Grade I-abnormal relaxation pattern. RIGHT VENTRICLE The right ventricle is normal size. There is normal right ventricular wall thickness. The right ventr icular systolic function is normal. ATRIA The left atrium size is normal. The right atrium size is normal. The interatrial septum is intact wit h no evidence for an atrial septal defect or patent foramen ovale as noted on 2-D or Doppler imaging. AORTIC VALVE The aortic valve is normal in structure and function. Doppler and Color Flow revealed no significant aortic regurgitation. There is no significant aortic valvular stenosis. MITRAL VALVE The mitral valve is thickened but opens well. There is no evidence of mitral valve prolapse. There is no mitral valve stenosis. Doppler and Color-flow revealed trace mitral regurgitation. TRICUSPID VALVE The tricuspid valve is normal in structure and function. Doppler and Color Flow revealed trace tricus pid regurgitation. There is no tricuspid valve stenosis. PULMONIC VALVE The pulmonic valve is not well visualized. Doppler and Color Flow revealed trace to mild pulmonic rafat vular regurgitation. GREAT VESSELS The aortic root is normal in size. The ascending aorta is normal in size. The IVC is normal in size a nd collapses >50% with inspiration. PERICARDIAL EFFUSION There is no pleural effusion. There is no evidence of significant pericardial effusion. Critical Notification Critical Value: No <Conclusion> The left ventricular systolic function is normal. The Ejection Fraction is 60-65%. There is normal LV segmental wall motion. Transmitral Doppler flow pattern is Grade I-abnormal relaxation pattern. Trace mitral regurgitation. Trace tricuspid regurgitation. There is no evidence of significant pericardial effusion. Signed by : Paolo Jewell, Electronically Approved : 02/03/2019 10:24:00
== END | disposition home or self-care (01) ==
LOC: ECHO 08:51
PROVIDERS: ATTEND Internal Medicine Hematology & Oncology
DX: I37.1 Nonrheumatic pulmonary valve insufficiency (principal); I11.0 Hypertensive heart disease with heart failure; I50.9 Heart failure, unspecified; C50.411 Malignant neoplasm of upper-outer quadrant of right female breast; Z17.0 Estrogen receptor positive status [ER+]; Z86.73 Personal history of transient ischemic attack (TIA), and cerebral infarction without residual deficits
CPT/HCPCS: 93306

== ENCOUNTER → 2019-05-05 | Outpatient (CLI) | payer MEDICARE, OTHER ==
--- NOTE | 2019-05-05 10:45 | CARD ---
MR#: [id number] Date of Study: 05/05/2019 Ordering Physician: IDA BABCOCK, Referring Physician: IDA BABCOCK Tech: Antonella Garcia RDCS APPROVED REPORT EXAM: Two-dimensional and M-mode echocardiogram with Doppler and color Doppler. Other Information Quality : GoodHR: 67bpm Rhythm : NSR INDICATION LV function. Cardiotoxic meds/cancer Hx: HTN 2D DIMENSIONS RVDd2.7 (2.9-3.5cm)Left Atrium(2D)3.9 (1.6-4.0cm) IVSd1.1 (0.7-1.1cm)Aortic Root(2D)3.2 (2.0-3.7cm) LVDd4.8 (3.9-5.9cm)LVOT Diameter2.1 (1.8-2.4cm) PWd1.1 (0.7-1.1cm)LVDs3.6 (2.5-4.0cm) FS (%) 25.3 %SV54.0 ml LVEF(%)49.8 (>50%) Aortic Valve AoV Peak Cm.104.3cm/[place] Peak GR.4.3mmHg LVOT Peak Cm.79.1cm/sAVA (VMAX)2.73cm2 Mitral Valve MV E Fbnccsuy927.8cm/sMV DECEL MXFB909rx MV A Oxcorsqb21.6cm/sE/A Ratio1.6 MV A Fwsgvujv722bh Pulmonary Valve PV Peak Entdthjb13.4cm/s Tricuspid Valve TR P. Mragpwxh931jz/sTR Peak Gr.15mmHg Pulmonary Vein S1 Kwpltofw54.3cm/sD2 Avpqibmu81.7cm/s PVa jldztjwa975xbwo LEFT VENTRICLE The left ventricle is normal size. There is normal left ventricular wall thickness. The left ventricu lar systolic function is normal and the ejection fraction is within normal range. The Ejection Fracti on is 50-55%. There is normal LV segmental wall motion. Transmitral Doppler flow pattern is Grade II- pseudonormal filling dynamics. RIGHT VENTRICLE The right ventricle is normal size. The right ventricular systolic function is normal. ATRIA The left atrium size is normal. The right atrium size is normal. The interatrial septum is intact wit h no evidence for an atrial septal defect or patent foramen ovale as noted on 2-D or Doppler imaging. AORTIC VALVE The aortic valve is normal in structure and function. Doppler and Color Flow revealed no significant aortic regurgitation. There is no significant aortic valvular stenosis. MITRAL VALVE The mitral valve is normal in structure and function. There is no mitral valve stenosis. Doppler and Color-flow revealed mild mitral regurgitation. TRICUSPID VALVE The tricuspid valve is normal in structure and function. Doppler and Color Flow revealed trace tricus pid regurgitation. Estimated PAP is 20mmHg. There is no tricuspid valve stenosis. PULMONIC VALVE Doppler and Color Flow revealed mild pulmonic valvular regurgitation. There is no pulmonic valvular s tenosis. GREAT VESSELS The aortic root is normal in size. The ascending aorta is normal in size. The IVC is normal in size a nd collapses >50% with inspiration. PERICARDIAL EFFUSION There is no evidence of significant pericardial effusion. Critical Notification Critical Value: No <Conclusion> The left ventricular systolic function is normal and the ejection fraction is within normal range. Th e Ejection Fraction is 50-55%. There is normal LV segmental wall motion. Signed by : Charlie Dowling, Electronically Approved : 05/05/2019 10:44:20
== END | disposition home or self-care (01) ==
LOC: ECHO 09:35
PROVIDERS: ATTEND Internal Medicine Hematology & Oncology
DX: C50.411 Malignant neoplasm of upper-outer quadrant of right female breast (principal); I08.8 Other rheumatic multiple valve diseases; I10 Essential (primary) hypertension
CPT/HCPCS: 93306

== ENCOUNTER → 2019-10-26 | Outpatient (CLI) | payer MEDICARE, OTHER ==
[~2019-10-26] MED LIST changes: +MULT-445 PO; -MULT1TAB52 PO
== END | disposition home or self-care (01) ==
LOC: LAB 12:49
PROVIDERS: ATTEND Surgery
DX: Z01.818 Encounter for other preprocedural examination (principal); Z11.59 Encounter for screening for other viral diseases; Z95.828 Presence of other vascular implants and grafts
CPT/HCPCS: U0003-CS

== ENCOUNTER → 2019-10-29 | Day surgery (SDC) | payer MEDICARE, OTHER ==
[~2019-10-29] MED LIST changes: +ANAS1TAB47 PO; +BUPIVACAINE-EPI 0.5%-1:200000 MPF 30 ML VIAL. INJ ONE; +DULO60CA6 PO; +POTA20TA4 PO
[2019-10-29 10:33] VITALS: BP 199/83
--- NOTE | 2019-10-29 11:07 | PDOC4 ---
Operative Note Operative Note Date: October 29, 2019 at 1105 Preoperative diagnosis: Port-A-Cath in place Postoperative diagnosis: Same Procedure: Removal of Port-A-Cath Surgeon: Javier Specimen: Port-A-Cath Dictation: Patient is a 69-year-old female is finished her therapy for breast cancer and is wanting her Port-A-Cath removed. Procedure removal of Port-A-Cath was explained to the patient detail was benefits were also discussed occluding bleeding infection alternatives to this procedure also discussed with the patient who seemed to understand and gave both verbal and written consent to have the procedure performed. Patient was taken to the minors room placed in the supine position her left chest and shoulder area prepped and draped usual sterile fashion using ChloraPrep and area around the port was injected with half percent Marcaine with epinephrine once this was completely anesthetized and incision was made with 15 blade scalpel over the port, the port was removed sharply with Metzenbaum scissors and sent for gross pathology. The wound was closed in a single layer 4-0 subcuticular Monocryl Mastisol Steri-Strips and island dressings were applied. Patient tolerated procedure well was stable condition was discharged home in good condition to follow-up as needed. Estimated blood loss 5 mL GLADIS CUELLAR MD Oct 29, 2019 11:07
--- NOTE | 2019-10-29 11:09 | DISCH ---
DISCHARGE INSTRUCTIONS Condition on Discharge Condition on Discharge: Stable Activity After Discharge Activity Instructions for Disc: Activity as tolerated Other activity instructions: May shower in 24 hours Diet after Discharge Diet after Discharge: Regular Wound Incision Care Wound/Incision Care: Ice to area for comfort Other wound/incision instructi: May shower in 24 hours Contacting the DRNicolas after DC Call your doctor for: If your condition worsens Follow-Up Follow up with: Dr. Cuellar as needed Treatment/Equipment after DC Adaptive Equipment Issued: None GLADIS CUELLAR MD Oct 29, 2019 11:09
--- NOTE | 2019-10-30 17:07 | PATHOLOGY ---
[facility] Accession Number: [id number] . 01 Material submitted: . body - GROSS PORT A CATH . 01 Clinical history: . no longer needs port . 02 Diagnosis: Diagnosis after gross examination: - Port-A-Cath (Gross only). (JPM/db; 10/30/2019) LBQ 10/30/2019 1653 Local . 02 Electronically signed: . Zeke Holliday MD, Pathologist NPI- [id number] . 01 Gross description: . The specimen is received fresh, labeled "Jelly Costa, Port-A-Cath" and consists of a purple pyramidal port measuring 2.7 x 2.3 cm with protruding white rubbery tubing from one aspect measuring 19.0 cm in length and 0.3 cm in diameter. The port has the inscription "BARD AE [id number]". Gross photos are taken and no sections are submitted. (SDY; 10/29/2019) SYU/SYU 10/29/2019 1659 Local . 02 Pathologist provided ICD-10: Z45.2 . 02 CPT . 594623 Specimen Comment: A courtesy copy of this report has been sent to [phone], [phone] Specimen Comment: [id number] Specimen Comment: Report sent to / DR GUERRA Performed at: 01 [facility] [address], [place] [id number] MD Percy Preston MD Phone: [phone] Performed at: 02 [facility] [address] [place], [place] [id number] MD Zeke Holliday MD Phone: [phone]
== END | disposition home or self-care (01) ==
LOC: SURG 10:10
PROVIDERS: ATTEND Surgery
DX: Z45.2 Encounter for adjustment and management of vascular access device (principal); C50.911 Malignant neoplasm of unspecified site of right female breast; Z88.8 Allergy status to other drugs, medicaments and biological substances; Z79.899 Other long term (current) drug therapy
CPT/HCPCS: 36590; 88300

== ENCOUNTER → 2020-10-04 | Outpatient (CLI) | payer MEDICARE, OTHER ==
[2019-10-29 10:33] VITALS: BP 199/83
[~2020-10-04] MED LIST changes: -BUPIVACAINE-EPI 0.5%-1:200000 MPF 30 ML VIAL. INJ ONE
--- NOTE | 2020-10-04 10:55 | RAD ---
EXAM: Unilateral digital diagnostic mammography, left. HISTORY: Personal history of right breast cancer status post mastectomy. Routine left surveillance. TECHNIQUE: Left full field digital images were obtained in CC and MLO projections with tomosynthesis. Computer-aided detection was applied. COMPARISON: 07/04/2018. COMPOSITION: A. The breasts are almost entirely fatty. FINDINGS: There are no suspicious masses, microcalcifications or architectural distortion. The parenc hymal pattern is stable. Scattered and coarse calcifications are benign. BI-RADS CATEGORY 2: Benign. RECOMMENDATION: 1. Continued surveillance mammography in one year. If mammography demonstrates dense breast tissue (heterogenously dense or extremely dense, category C or D), which could hide abnormalities, and if other risk factors for breast cancer have been identifi ed, supplemental screening tests that may be suggested by the ordering physician may be of benefit. D ense breast tissue, in and of itself, is a relatively common condition. Therefore, this information i s not provided to cause undue concern, but rather to raise awareness and to promote discussion with t he referring physician regarding the presence of other risk factors, in addition to dense breast tiss ue. The results of this mammography examination is provided to the patient and referring physician. T he patient should contact their referring physician if any questions or concerns exist regarding this report. PQRS compliance statement - Patient information was entered into a reminder system with a target due date for the next mammogram. "Our facility is accredited by the [employer] Mammography Program." Electronically signed by: Tasha Gil MD (10/04/2020 10:52 AM) [email or web address]
== END ==
LOC: MAMMO 10:15
PROVIDERS: ATTEND Internal Medicine Hematology & Oncology
DX: C50.411 Malignant neoplasm of upper-outer quadrant of right female breast (principal); T45.1X5A Adverse effect of antineoplastic and immunosuppressive drugs, initial encounter; I10 Essential (primary) hypertension; E11.9 Type 2 diabetes mellitus without complications; K63.5 Polyp of colon; G62.0 Drug-induced polyneuropathy; K59.01 Slow transit constipation; Z17.0 Estrogen receptor positive status [ER+]; X58.XXXA Exposure to other specified factors, initial encounter
CPT/HCPCS: 77065; G0279; 77061

== ENCOUNTER → 2021-05-29 | Outpatient (CLI) | payer MEDICARE, OTHER ==
[2021-03-01 09:29] VITALS: BP 131/60
[~2021-05-29] MED LIST changes: +AMLO-186 PO; +ASPI-630 PO; +ATOR10TA60 PO; +DAPA10TA PO; -DULO60CA6 PO; +DULO60CA7 PO; +FURO-68 PO; +LISI10TA16 PO; +METO50TA4 PO; +POTA-121 PO; -POTA20TA4 PO; +POTA20TA40 PO; +SPIR25TA PO
--- NOTE | 2021-05-30 08:04 | CARD ---
MR#: [id number] Date of Study: 05/29/2021 Ordering Physician: HODA HDZ, Referring Physician: HODA HDZ, Tech: Krystal Harris [facility] APPROVED REPORT EXAM: Two-dimensional and M-mode echocardiogram with Doppler and color Doppler. Other Information Quality : GoodHR: 123bpm INDICATION Dyspnea Chest Pain RISK FACTORS Hypertension Hyperlipidemia Diabetes 2D DIMENSIONS RVDd2.4 (2.9-3.5cm)Left Atrium(2D)4.2 (1.6-4.0cm) IVSd0.8 (0.7-1.1cm)Aortic Root(2D)2.9 (2.0-3.7cm) LVDd6.4 (3.9-5.9cm)LVOT Diameter1.8 (1.8-2.4cm) PWd0.9 (0.7-1.1cm)LVDs5.5 (2.5-4.0cm) FS (%) 13.0 %SV56.1 ml LVEF(%)27.3 (>50%) Aortic Valve AoV Peak Cm.91.4cm/sAoV VTI11.4cm AO Peak GR.3.3mmHgLVOT Peak Cm.69.4cm/s AO Mean GR.2mmHgAVA (VMAX)2.01cm2 Pulmonary Valve PV Peak Velocity8.2cm/s LEFT VENTRICLE The Left Ventricle is moderately dilated. There is normal left ventricular wall thickness. The left v entricular systolic function is severely impaired. Estimated ejection fraction 15-20% There is globa l hypokinesis of the left ventricle. RIGHT VENTRICLE The right ventricle is normal size. There is normal right ventricular wall thickness. Systolic functi on is moderately reduced. ATRIA The left atrium is mildly dilated. The right atrium size is normal. The interatrial septum is intact with no evidence for an atrial septal defect or patent foramen ovale as noted on 2-D or Doppler imagi ng. AORTIC VALVE The aortic valve is normal in structure and function. Doppler and Color Flow revealed trace aortic re gurgitation. There is no significant aortic valvular stenosis. MITRAL VALVE There is no evidence of mitral valve prolapse. There is no mitral valve stenosis. Doppler and Color-f low revealed severe mitral regurgitation. TRICUSPID VALVE The tricuspid valve is normal in structure and function. Doppler and Color Flow revealed trace tricus pid regurgitation. Estimated PAP 62 mmHg. There is no tricuspid valve stenosis. PULMONIC VALVE The pulmonary valve is normal in structure and function. Doppler and Color Flow revealed trace pulmon ic valvular regurgitation. GREAT VESSELS The aortic root is normal in size. The ascending aorta is normal in size. The IVC is normal in size a nd collapses <50% with inspiration. PERICARDIAL EFFUSION There is no evidence of significant pericardial effusion. Critical Notification Critical Value: No <Conclusion> The left ventricular systolic function is severely impaired. Estimated ejection fraction 15-20% The Left Ventricle is moderately dilated. Severe mitral regurgitation. Trace tricuspid regurgitation. Estimated PAP 62 mmHg. There is no evidence of significant pericardial effusion. Signed by : Paolo Jewell, Electronically Approved : 05/30/2021 08:03:56
== END ==
LOC: ECHO 10:07
PROVIDERS: ATTEND Internal Medicine Cardiovascular Disease
DX: I34.0 Nonrheumatic mitral (valve) insufficiency (principal); I42.9 Cardiomyopathy, unspecified
CPT/HCPCS: 93306; C8929

== ENCOUNTER 2021-06-15 10:05 | Day surgery (SDC) | payer MEDICARE, OTHER ==
[~2021-06-15] VITALS: Ht 172.7 cm; Wt 75.0 kg
[~2021-06-15 10:05] MED LIST changes: +IV RINGERS,LACTATED 1000ML 1,000 ML IV SCH
[2021-06-15] MEDS ORDERED: EMPA10TA3 PO (10:27)
[2021-06-15] MEDS ORDERED: OMEG1CAP38 PO (10:27)
[2021-06-15] MEDS ORDERED: MULT-496 PO (10:27)
[2021-06-15] MEDS ORDERED: BENZOCAINE ONE 20% MUCOSAL SPRAY. MM (10:30)
[2021-06-15] MEDS ORDERED: LIDOCAINE 2% TOPICAL JELLY 30GM TUBE. TP ONE (10:30)
[2021-06-15] MEDS ORDERED: LIDOCAINE 2% VISCOUS 15 ML SOLUTION. SWSW ONE (10:30)
[2021-06-15 10:58] LABS: CALCIUM 10.3 mg/dL (8.5-10.1); CREATININE 1.1 mg/dL (0.6-1.0); GFR 58.9; HEMATOCRIT 45.3 % (36.0-47.0); HEMOGLOBIN 14.8 g/dL (12.0-15.5); POTASSIUM 4.1 mmol/L (3.5-5.1); RED BLOOD COUNT 4.78 x10^6/uL (3.50-5.40); RED CELL DISTRIBUTION WIDTH 15.8 % (11.5-14.5); WHITE BLOOD COUNT 12.1 x10^3/uL (4.0-11.0)
[2021-06-15] MEDS ORDERED: LIDOCAINE 1% Multi-Dose 20 ML VIAL. ONE (11:01)
[2021-06-15 11:02] VITALS: BP 91/59
[2021-06-15] MEDS ORDERED: CHLOROPROCAINE 3% MPF 20 ML VIAL. IJ ONE (11:15)
[2021-06-15] MEDS ORDERED: MIDAZOLAM HCL/PF 2 MG/2 ML VIAL. IV ONE (11:15)
[2021-06-15] MEDS ORDERED: fentaNYL PF VIAL 100 MCG/2 ML VIAL IV ONE (11:15)
[2021-06-15 11:22] LABS: PROTHROMBIN TIME PATIENT 13.9 SEC (11.7-14.0)
[2021-06-15] MEDS ORDERED: BENZOCAINE ONE 20% MUCOSAL SPRAY. (11:30)
[2021-06-15] MEDS ORDERED: PROPOFOL 50 ML IV ONE (11:38)
[2021-06-15] MEDS ORDERED: GLYCOPYRROLATE 1 MG/5 ML VIAL. ONE (11:39)
[2021-06-15] MEDS ORDERED: ePHEDrine PF IN SALINE 50 MG/10 ML SYRINGE. IV ONE (11:40)
[2021-06-15] MEDS ORDERED: 0.9 % SODIUM CHLORIDE 20 ML VIAL. IJ ONE (11:40)
[2021-06-15] MEDS ORDERED: PHENYLEPHRINE 10 MG/ML VIAL. ONE (11:40)
[2021-06-15 12:09] VITALS: BP 99/61
[2021-06-15 13:55] VITALS: BP 125/64
[2021-06-15] MEDS ORDERED: METO-239 PO (14:02)
[2021-06-15] MEDS ORDERED: FURO-68 PO (14:03)
[2021-06-15] MEDS ORDERED: POTA20TA4 PO (14:04)
--- NOTE | 2021-06-15 14:10 | CARD ---
MR#: [id number] Date of Study: 06/15/2021 Ordering Physician: HODA HDZ, Referring Physician: HODA HDZ, Tech: RT Rafa(R) APPROVED REPORT Technologist: RT Rafa(R) Nurse: Megan Soctt RN Procedure(s) performed: FL TIME: 0.4 MINS DOSE: 0.25 GYCM2 MODERATE SEDATION: 10 MINS RHC INDICATION The indication(s) include : dyspnea. PROCEDURE NARRATIVE Clinical Information: 71 y.o woman with LBBB and NICM presents for evaluation of filling status. Procedure details: After appropriate informed consent the right neck was prepped and draped in usual sterile fashion. U nder 1% lidocaine local anesthesia a 5 Marshallese sheath was placed in the right internal jugular vein. Next a 5 Marshallese PA catheter was advanced to the right heart chambers and pressures and saturations we re obtained. At case completion, the catheter and sheath were removed and hemostasis was achieved vi a manual compression. See separate procedure report for SYD. Findings: RA 3 mmHg RV 40/0/12 PA 44/4/24 Wedge 13 mmHg PA saturation 80% FA saturation 100% Wedge saturation 96% Lor cardiac output 4.9 L/min, cardiac index 2.6 Conclusion 1. Normal biventricular filling pressures 2. No significant pulmonary hypertension 3. Normal cardiac output Recommendations Aggressive Medical Therapy Signed by : Hoda Hdz, Electronically Approved : 06/15/2021 14:09:45
--- NOTE | 2021-06-16 07:27 | CARD ---
MR#: [id number] Date of Study: 06/15/2021 Ordering Physician: HODA HDZ, Referring Physician: HODA HDZ, Tech: Prabhu Lujan [facility] APPROVED REPORT EXAM: Transesophageal echocardiogram with color flow Doppler. INDICATION Mitral Regurgitation Reason For Test : Evaluate Mitral valve PROCEDURE After obtaining informed consent, patient underwent transesophageal echo in the [employer] [facility]. Type of Sedation : Conscious Sedation Sedation was administered by the anesthesia department.. The SYD was performed without complications. Throughout the procedure, the blood pressure, pulse oximetry, cardiac rhythm, and rate were monitored . The patient tolerated the procedure without adverse effects. Recovery from conscious sedation was une ventful and vital signs were stable. LEFT VENTRICLE The Left Ventricle is severely dilated. There is normal left ventricular wall thickness. The ejection fraction is severely impaired. EF 25% There is global hypokinesis No left ventricle thrombus noted o n this study. There is no ventricular septal defect visualized. There is no left ventricular aneurysm . There is no mass noted in the left ventricle. RIGHT VENTRICLE The right ventricle is normal size. There is normal right ventricular wall thickness. The right ventr icular systolic function is normal. ATRIA The left atrium is moderately dilated. The right atrium size is normal. The interatrial septum is int act with no evidence for an atrial septal defect or patent foramen ovale as noted on 2-D or Doppler i maging. There is no thrombus noted in the left atrial appendage. AORTIC VALVE The aortic valve is normal in structure and function. The aortic valve is trileaflet. Doppler and Col or Flow revealed no significant aortic regurgitation. There is no significant aortic valvular stenosi s. There is no aortic valvular vegetation. MITRAL VALVE The mitral valve is thickened with malcoaptation. There is no evidence of mitral valve prolapse. Ther e is no mitral valve stenosis. Doppler and Color-flow revealed moderate mitral regurgitation. TRICUSPID VALVE The tricuspid valve is normal in structure and function. Doppler and Color Flow revealed mild tricusp id regurgitation. There is no tricuspid valve prolapse or vegetation. There is no tricuspid valve rommel nosis. PULMONIC VALVE The pulmonary valve is normal in structure and function. Doppler and Color Flow revealed no pulmonic valvular regurgitation. There is no pulmonic valvular stenosis. GREAT VESSELS The aortic root is normal in size. The ascending aorta is normal in size. The pulmonary artery is nor mal. The IVC is normal in size and collapses >50% with inspiration. Critical Notification Critical Value: No <Conclusion> The ejection fraction is severely impaired. EF 25% There is global hypokinesis Doppler and Color-flow revealed moderate mitral regurgitation. Signed by : oHda Hdz, Electronically Approved : 06/16/2021 07:27:37
== END 2021-06-15 14:25 | disposition home or self-care (01) ==
LOC: SURG 10:05
PROVIDERS: ATTEND Internal Medicine Cardiovascular Disease
DX: I34.0 Nonrheumatic mitral (valve) insufficiency (principal); R06.09 Other forms of dyspnea; I42.9 Cardiomyopathy, unspecified; I10 Essential (primary) hypertension; E78.00 Pure hypercholesterolemia, unspecified; E11.9 Type 2 diabetes mellitus without complications; M19.90 Unspecified osteoarthritis, unspecified site; Z85.3 Personal history of malignant neoplasm of breast; Z90.710 Acquired absence of both cervix and uterus; Z98.890 Other specified postprocedural states; Z79.899 Other long term (current) drug therapy; Z79.82 Long term (current) use of aspirin; Z88.8 Allergy status to other drugs, medicaments and biological substances
CPT/HCPCS: 36415; 76937; 80048; 82962; 85027; 85610; 93312; 93325; 93451; 99152; C1773; C1894; J1644; J2250; J2370; J2400; J2704; J3010; J3490

== ENCOUNTER 2021-07-19 13:46 | Inpatient (IN) | payer MEDICARE, OTHER ==
[~2021-07-19] VITALS: Ht 172.7 cm; Wt 69.2 kg
[~2021-07-19 13:46] MED LIST changes: +EMPA10TA3 PO; -IV RINGERS,LACTATED 1000ML 1,000 ML IV SCH; +METO-239 PO; +MULT-496 PO; +OMEG1CAP38 PO; +POTA20TA4 PO
--- NOTE | 2021-07-19 14:57 | PHYS DOC ---
Past Medical History Past Medical History: Diabetes-Type II Past Surgical History: No Surgical History Additional Past Surgical Histo: R masectomty Smoking Status: Never Smoker Alcohol Use: None Drug Use: None General Adult EDM: Chief Complaint: SHORTNESS OF BREATH HPI: HPI: Patient is a 71 year old female with a history of breast cancer and pleural effusions in the past comes in with progressive shortness of breath over the last 2 weeks. Patient states that she went to an urgent care today and was diagnosed with a left-sided pleural effusion and was sent to the ER for further evaluation. Patient states that she has dyspnea on exertion. Denies any chest pain denies any fevers or chills. Patient states her breast cancer has been in remission for the last 2 years. Patient states that she had a similar episode in February with a pleural effusion. Review of Systems: Review of Systems: Constitutional: Generalized fatigue and weakness denies fever or chills. [] Eyes: Denies change in visual acuity. [] HENT: Denies nasal congestion or sore throat. [] Respiratory: Shortness of breath Cardiovascular: Dyspnea on exertion, denies chest pain or edema. [] GI: Denies abdominal pain, nausea, vomiting, bloody stools or diarrhea. [] : Denies dysuria. [] Musculoskeletal: Denies back pain or joint pain. [] Integument: Denies rash. [] Neurologic: Denies headache, focal weakness or sensory changes. [] Endocrine: Denies polyuria or polydipsia. [] Lymphatic: Denies swollen glands. [] Psychiatric: Denies depression or anxiety. [] Heart Score: C/O Chest Pain: No Risk Factors: Risk Factors: DM, Current or recent (<one month) smoker, HTN, HLP, family history of CAD, obesity. Risk Scores: Score 0 - 3: 2.5% MACE over next 6 weeks - Discharge Home Score 4 - 6: 20.3% MACE over next 6 weeks - Admit for Clinical Observation Score 7 - 10: 72.7% MACE over next 6 weeks - Early Invasive Strategies Allergies: Allergies: Allergies Coded Allergies Type Severity Reaction Last Updated Verified lidocaine Allergy Intermediate Rash 07/19/21 Yes Physical Exam: PE: Constitutional: Ill-appearing well developed, well nourished, no acute distress, HENT: Normocephalic, atraumatic, bilateral external ears normal, oropharynx moist, no oral exudates, nose normal. Eyes: PERRLA, EOMI, conjunctiva normal, no discharge. Neck: Normal range of motion, no tenderness, supple, no stridor. Cardiovascular:Heart rate regular rhythm, no murmur Lungs & Thorax: Absent breath sounds on the left. Moderate respiratory distress. Abdomen: Bowel sounds normal, soft, no tenderness, no masses, no pulsatile masses. [ Skin: Warm, dry, no erythema, no rash. [ Back: No tenderness, no CVA tenderness. [ Extremities: No tenderness, no cyanosis, no clubbing, ROM intact, no edema. [ Neurologic: Alert and oriented X 3, normal motor function, normal sensory function, no focal deficits noted. Psychologic: Affect normal, judgement normal, mood normal. Current Patient Data: Vital Signs: Vital Signs Date Time Temp Pulse Resp B/P (MAP) Pulse Ox O2 Delivery O2 Flow Rate FiO2 07/19/21 14:03 97.4 97 14 127/75 (92) 95 97.4 EKG: EKG: [] Radiology/Procedures: Radiology/Procedures: [] Course & Med Decision Making: Course & Med Decision Making Pertinent Labs and Imaging studies reviewed. (See chart for details) [] Dragon Disclaimer: Dragon Disclaimer: This electronic medical record was generated, in whole or in part, using a voice recognition dictation system. Departure Departure Referrals: LEANDRA GUERRA MD (PCP) ZAIDA NEAL DO Jul 19, 2021 14:57
[2021-07-19 17:33] LABS: BASO % 1 % (0-3); EOS % 1 % (0-3); HEMATOCRIT 48.4 % (36.0-47.0); HEMOGLOBIN 15.7 g/dL (12.0-15.5); LYMPH # 2.4 x10^3/uL (1.0-4.8); LYMPH % 29 % (24-48); MEAN CORPUSCULAR HEMOGLOBIN 31 pg (25-35); MEAN CORPUSCULAR HGB CONC 32 g/dL (31-37); MEAN CORPUSCULAR VOLUME 96 fL (79-100); MONO # 0.7 x10^3/uL (0.0-1.1); MONO % 8 % (0-9); NEUT # 5.1 x10^3/uL (1.8-7.7); NEUT % 62 % (31-73); PLATELET COUNT 277 x10^3/uL (140-400); RED BLOOD COUNT 5.06 x10^6/uL (3.50-5.40); RED CELL DISTRIBUTION WIDTH 16.2 % (11.5-14.5); WHITE BLOOD COUNT 8.2 x10^3/uL (4.0-11.0)
[2021-07-19 17:52] LABS: CALCIUM 9.9 mg/dL (8.5-10.1); GFR 65.8; POTASSIUM 4.5 mmol/L (3.5-5.1)
--- NOTE | 2021-07-19 17:52 | RAD ---
AP chest. HISTORY: Pleural effusion AP view was taken of the chest. There is a moderate left pleural effusion. There is mild hazy atelect asis or infiltrate in the left lung base. There is no significant right effusion. Heart is mildly enl arged. IMPRESSION: 1. Moderate left pleural effusion. Electronically signed by: Patrick Mart MD (07/19/2021 5:50 PM) [facility]
[2021-07-19 17:58] LABS: ALBUMIN 3.7 g/dL (3.4-5.0); ALBUMIN/GLOBULIN RATIO 1.1 (1.0-1.7); TOTAL BILIRUBIN 1.6 mg/dL (0.2-1.0)
[2021-07-19] MEDS ORDERED: IOHEXOL 300 MG/ML 100ML VIAL. IV ONE (18:30)
--- NOTE | 2021-07-19 18:32 | RAD ---
PQRS Compliance Statement: One or more of the following individualized dose reduction techniques were utilized for this examinat ion: 1. Automated exposure control 2. Adjustment of the mA and/or kV according to patient size 3. Use of iterative reconstruction technique CT THORAX W Clinical Indication: Reason: pleural effusion / Comparison: CTPA February 19, 2021. Technique: Helical CT imaging of the chest is performed after 75 cc Omnipaque 300 IV contrast. Findings: The great vessels are normal caliber. There is a 1.2 cm right paratracheal lymph node but smaller suhail n on prior study. There is no central pulmonary embolus. No coronary artery calcium is identified. Th e cardiac size is mildly enlarged. No pericardial effusion. There are moderate to large bilateral pleural effusions, similar to prior study. There is compressive atelectasis in the bilateral lower lobes adjacent to the pleural effusions. The aerated lungs are cl ear. The central airways are patent. There is right mastectomy. The visualized upper abdomen is unremarkable. The thoracic spine alignment is maintained. IMPRESSION: 1. Moderate to large bilateral pleural effusions. 2. Bilateral lower lobe compressive atelectasis. 3. Mild cardiomegaly. Electronically signed by: Ion Barrett MD (07/19/2021 6:30 PM) [facility]
[2021-07-19] MEDS ORDERED: CONTRAST GIVEN. MC PRN (18:45)
[2021-07-19] MEDS ORDERED: FUROSEMIDE 40 MG/4 ML VIAL. IVP ONE (18:45)
[2021-07-19 23:00] VITALS: BP 105/55
[2021-07-20] VITALS (7 sets, daily range): BP systolic 92–155; BP diastolic 39–83
[2021-07-20 07:26] LABS: BASO % 0 % (0-3); EOS # 0.1 x10^3/uL (0.0-0.7); EOS % 1 % (0-3); HEMATOCRIT 47.2 % (36.0-47.0); HEMOGLOBIN 15.2 g/dL (12.0-15.5); LYMPH # 2.7 x10^3/uL (1.0-4.8); LYMPH % 39 % (24-48); MEAN CORPUSCULAR HEMOGLOBIN 31 pg (25-35); MEAN CORPUSCULAR HGB CONC 32 g/dL (31-37); MEAN CORPUSCULAR VOLUME 97 fL (79-100); MONO # 0.6 x10^3/uL (0.0-1.1); MONO % 9 % (0-9); NEUT # 3.5 x10^3/uL (1.8-7.7); NEUT % 51 % (31-73); PLATELET COUNT 254 x10^3/uL (140-400); RED BLOOD COUNT 4.85 x10^6/uL (3.50-5.40); RED CELL DISTRIBUTION WIDTH 16.5 % (11.5-14.5)
[2021-07-20 07:32] LABS: ALBUMIN 3.4 g/dL (3.4-5.0); ALBUMIN/GLOBULIN RATIO 1.1 (1.0-1.7); CALCIUM 9.6 mg/dL (8.5-10.1); CREATININE 1.1 mg/dL (0.6-1.0); GFR 58.9; POTASSIUM 3.5 mmol/L (3.5-5.1); TOTAL BILIRUBIN 1.6 mg/dL (0.2-1.0); TOTAL PROTEIN 6.4 g/dL (6.4-8.2)
--- NOTE | 2021-07-20 07:42 | EKG ---
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
[2021-07-20] MEDS ORDERED: POTASSIUM CHLORIDE 20 MEQ TABLET.ER. PO PRN (08:15)
--- NOTE | 2021-07-20 08:44 | PDOC2 ---
FAMILIA DALEY SPECIAL EFFECTS DESIGNER 07/20/21 0844: CARDIAC CONSULT DATE OF CONSULT Date of Consult DATE: 07/20/21 TIME: 08:29 REASON FOR CONSULT Reason for Consult: Cardiomyopathy REFERRING PHYSICIAN Referring Physician: Zully SOURCE Source: Chart review, Patient HISTORY OF PRESENT ILLNESS HISTORY OF PRESENT ILLNESS This is a 71 yo female admitted for complains of shortness of breath. She has been getting more SOA particularly with exertion in the last 2-3 weeks. No chest pain or palpitations. She has been drrinking fluids more than 2L and could not ascertain her Na intake. She is compliant otherwise with her medications. No fever or chills and no coughing or any recent respiratory infection. She is known for moderate MR, NICM and hx of breast CA in remission for about 2 yrs now. Upon imaging she has bilateral pleural effusion and needing thoracentesis. She is sitting up and on RA without difficulty in breathing with normal O2 sat. No significant peripheral edema. To add her appetite has been down but no abd pa in or nausea or vomiting. PAST MEDICAL HISTORY Past Medical History Cardiovascular: HTN, CHF, NICM, LBBB Pulmonary: pleural effusion CENTRAL NERVOUS SYSTEM: Peripheral neuropathy Heme/Onc: Cancer (breast) Musculoskeletal: Osteoarthritis Endocrine: Diabetes PAST SURGICAL HISTORY Past Surgical History Cholecystectomy, Hysterectomy, Other (right mastectomy ) SOCIAL HISTORY Smoke: No ALCOHOL: none Drugs: None CURRENT MEDICATIONS CURRENT MEDICATIONS Current Medications Medications (Trade) Dose Ordered Sig/Rupert Route PRN Reason Start Time Stop Time Status Last Admin Dose Admin Iohexol (Omnipaque 300 Mg/ml) 75 ml 1X ONCE IV 07/19/21 18:30 07/19/21 18:31 DC 07/19/21 18:18 Furosemide (Lasix) 40 mg 1X ONCE IVP 07/19/21 18:45 07/19/21 18:46 DC 07/19/21 18:48 ALLERGIES ALLERGIES: Coded Allergies: lidocaine (Verified Allergy, Intermediate, Rash, 07/19/21) local ROS Review of System 14 point ROS evaluated with pertinent positives noted per HPI PHYSICAL EXAM General: Alert, Oriented X3, Cooperative, No acute distress HEENT: Atraumatic, Mucous membr. moist/pink Lungs: Other (basilar crackles) Heart: Regular rate (SR), Normal S1, Normal S2, Other (3/6 systolic apical murmur) Extremities: No cyanosis, Other (1+ bilateral LE pitting edmea) Skin: No breakdown, No significant lesion Neuro: Normal speech, Sensation intact Psych/Mental Status: Mental status NL, Mood NL MUSCULOSKELETAL: Osteoarthritic changes both hands VITALS/I&O VITALS/I&O: Vital Signs Date Time Temp Pulse Resp B/P (MAP) Pulse Ox O2 Delivery O2 Flow Rate FiO2 07/20/21 07:00 97.8 77 20 128/67 (87) 95 Room Air 97.8 I & O 07/19/21 07/19/21 07/20/21 15:00 23:00 07:00 Intake Total 200 ml Balance 200 ml LABS Lab: Laboratory Tests Test 07/19/21 17:10 07/19/21 17:21 07/20/21 05:30 07/20/21 07:01 SARS-CoV-2 Antigen (Rapid) Negative (NEGATIVE) White Blood Count 8.2 x10^3/uL (4.0-11.0) 7.0 x10^3/uL (4.0-11.0) Red Blood Count 5.06 x10^6/uL (3.50-5.40) 4.85 x10^6/uL (3.50-5.40) Hemoglobin 15.7 g/dL (12.0-15.5) H 15.2 g/dL (12.0-15.5) Hematocrit 48.4 % (36.0-47.0) H 47.2 % (36.0-47.0) H Mean Corpuscular Volume 96 fL (79-100) 97 fL (79-100) Mean Corpuscular Hemoglobin 31 pg (25-35) 31 pg (25-35) Mean Corpuscular Hemoglobin Concent 32 g/dL (31-37) 32 g/dL (31-37) Red Cell Distribution Width 16.2 % (11.5-14.5) H 16.5 % (11.5-14.5) H Platelet Count 277 x10^3/uL (140-400) 254 x10^3/uL (140-400) Neutrophils (%) (Auto) 62 % (31-73) 51 % (31-73) Lymphocytes (%) (Auto) 29 % (24-48) 39 % (24-48) Monocytes (%) (Auto) 8 % (0-9) 9 % (0-9) Eosinophils (%) (Auto) 1 % (0-3) 1 % (0-3) Basophils (%) (Auto) 1 % (0-3) 0 % (0-3) Neutrophils # (Auto) 5.1 x10^3/uL (1.8-7.7) 3.5 x10^3/uL (1.8-7.7) Lymphocytes # (Auto) 2.4 x10^3/uL (1.0-4.8) 2.7 x10^3/uL (1.0-4.8) Monocytes # (Auto) 0.7 x10^3/uL (0.0-1.1) 0.6 x10^3/uL (0.0-1.1) Eosinophils # (Auto) 0.0 x10^3/uL (0.0-0.7) 0.1 x10^3/uL (0.0-0.7) Basophils # (Auto) 0.0 x10^3/uL (0.0-0.2) 0.0 x10^3/uL (0.0-0.2) Sodium Level 139 mmol/L (136-145) 141 mmol/L (136-145) Potassium Level 4.5 mmol/L (3.5-5.1) 3.5 mmol/L (3.5-5.1) # Chloride Level 104 mmol/L (98-107) 105 mmol/L (98-107) Carbon Dioxide Level 22 mmol/L (21-32) 22 mmol/L (21-32) Anion Gap 13 (6-14) 14 (6-14) Blood Urea Nitrogen 17 mg/dL (7-20) 15 mg/dL (7-20) Creatinine 1.0 mg/dL (0.6-1.0) 1.1 mg/dL (0.6-1.0) H Estimated GFR (Cockcroft-Gault) 65.8 58.9 BUN/Creatinine Ratio 17 (6-20) 14 (6-20) Glucose Level 118 mg/dL (70-99) H 79 mg/dL (70-99) Calcium Level 9.9 mg/dL (8.5-10.1) 9.6 mg/dL (8.5-10.1) Total Bilirubin 1.6 mg/dL (0.2-1.0) H 1.6 mg/dL (0.2-1.0) H Aspartate Amino Transferase (AST) 41 U/L (15-37) H 33 U/L (15-37) Alanine Aminotransferase (ALT) 99 U/L (14-59) H 90 U/L (14-59) H Alkaline Phosphatase 87 U/L (46-116) 76 U/L (46-116) PF-Eyt-K-Type Natriuretic Peptide 5551 pg/mL (0-124) H Total Protein 7.0 g/dL (6.4-8.2) 6.4 g/dL (6.4-8.2) Albumin 3.7 g/dL (3.4-5.0) 3.4 g/dL (3.4-5.0) Albumin/Globulin Ratio 1.1 (1.0-1.7) 1.1 (1.0-1.7) Platelet Estimate Pending Glucose (Fingerstick) 84 mg/dL (70-99) Laboratory Tests 07/19/21 17:21 07/20/21 05:30 Laboratory Tests 07/19/21 17:21 07/20/21 05:30 ECHOCARDIOGRAM ECHOCARDIOGRAM <Conclusion> The ejection fraction is severely impaired. EF 25% There is global hypokinesis Doppler and Color-flow revealed moderate mitral regurgitation. DATE: 06/15/21 [id number] HEART CATH HEART CATH Conclusion 1. Normal biventricular filling pressures 2. No significant pulmonary hypertension 3. Normal cardiac output Recommendations Aggressive Medical Therapy DATE: 06/15/21 [id number] 0 Coronary angiography: Left main is a large-caliber vessel with normal angiographic appearance LAD is a moderate caliber vessel with a proximal 20% stenosis Left circumflex is a moderate to large caliber vessel with normal angiographic appearance RCA is a large caliber dominant vessel with normal angiographic appearance Conclusion 1. Biventricular pressure overload 2. Secondary pulmonary hypertension 3. Low cardiac output with cardiogenic shock 4. No significant coronary artery disease Recommendations 1. Initiation of milrinone therapy and aggressive diuresis. The patient has severe mitral gravitation and severe LV dysfunction. Continue optimization with consideration for outpatient MitraClip therapy depending on patient recovery and response to medical therapy. 02/21/2021 ASSESSMENT/PLAN ASSESSMENT/PLAN 1. Acute respiratory failure secondary to CHF and bilateral pleural effusion. on RA 2. Acute on chronic systolic CHF 3. NICM: LVEF 20-25%. recent LHC revealed no significant CAD. 4. PAFIB: SR with known LBBB. Could not ascertain burden 5. Moderate MR; with recent SYD 6. Hypertension; controlled 7. Diabetes, II: per PCP 8. H/o breast CA, s/p mastectomy. reported 2 yrs remission Recommendations Consult pulmonary, will need thoracentesis, await cytology and note any indication of CA. Lasix therapy. Potentially she may need inotropic agent such as milrinone moving forward and will need referral to [facility] for advance HF therapy. Will need to arrange for outpt [facility] Continue with HF optimization Discussed FR and Na restriction Continue ASA, metoprolol, jardiance, aldactone and lisinopril. BMP adn Mg in AM Strict I & O HODA HDZ MD 07/21/21 0232: CARDIAC CONSULT ASSESSMENT/PLAN ASSESSMENT/PLAN Late entry for 07/20/21 Pt. seen and examined. Agree with above STUDENT ASSISTANCE COUNSELOR note. She is on excellent medical therapy and still having HF symptoms. Will plan for outpt [facility] and [facility] HF referral if no clear evidence of malignancy. Thanks FAMILIA DALEY APRN Jul 20, 2021 08:44 HODA HDZ MD Jul 21, 2021 02:32
[2021-07-20] MEDS: ENOXAPARIN 40 MG/0.4 ML SYRINGE. SQ SCH (09:00)
[2021-07-20] MEDS ORDERED: FUROSEMIDE 100 MG/10 ML VIAL. IVP SCH (09:00)
[2021-07-20] MEDS: ANASTROZOLE 1 MG TABLET PO SCH (09:08)
[2021-07-20] MEDS: DULoxetine HCL 30 MG CAPSULE.DR PO SCH (09:20)
[2021-07-20] MEDS: POTASSIUM CHLORIDE 10 MEQ TABLET.ER. PO SCH ×3 (09:20→17:51)
[2021-07-20] MEDS: METOPROLOL SUCC 24HR ER 25 MG TAB.ER.24H. PO SCH (09:20)
[2021-07-20] MEDS: EMPAGLIFLOZIN 10 MG TABLET. PO SCH (09:21)
[2021-07-20] MEDS: SPIRONOLACTONE 25 MG TABLET PO SCH (09:21)
[2021-07-20] MEDS: LISINOPRIL 10 MG TABLET PO SCH (09:21)
[2021-07-20 10:46] LABS: ANISOCYTOSIS PRESENT; PLT ESTIMATE ADEQUATE (ADEQUATE)
--- NOTE | 2021-07-20 11:00 | CONS ---
DATE OF CONSULTATION: 07/20/2021 PULMONARY CONSULTATION ATTENDING PHYSICIAN: Rogers Acevedo MD. REASON FOR CONSULTATION: Pleural effusion, dyspnea. HISTORY OF PRESENT ILLNESS: The patient is 71-year-old, who has no significant tobacco use. She has a history of breast cancer. She has been in remission. The patient states that she is admitted because of increasing shortness of breath for the last 2 weeks. She denies any chest pain, no cough, no syncope. No fever, no chills, no nausea, vomiting or diarrhea. The patient states that she has a thoracentesis in February of last year and she felt better. She had similar symptoms. I have reviewed the patient's imaging studies including CT of the chest. There are moderate bilateral pleural effusion with compressive atelectasis. No significant pleural effusion. There is 1.2 cm right paratracheal lymph node, but smaller than prior study. The patient has no significant tobacco use. The patient states she felt better after thoracentesis previously. The patient also had a recent right heart cath in June. She had pulmonary capillary wedge pressure of 13 and the pulmonary artery systolic pressure was 44. PAST MEDICAL HISTORY: Significant for breast cancer, status post mastectomy on the left. No significant tobaccoism. She has history of prior thoracentesis, history of cardiomyopathy with an EF of 25%, history of moderate mitral regurgitation. PAST SURGICAL HISTORY: As discussed above. ALLERGIES: LIDOCAINE. MEDICATIONS: All reviewed as listed in the [facility]AD. REVIEW OF SYSTEMS: Twelve-point review of system obtained. Pertinent positives discussed in my present illness, otherwise noncontributory. All systems that were negative were reviewed as well. SOCIAL HISTORY: Nonsmoker. PHYSICAL EXAMINATION: VITAL SIGNS: Reviewed. Pulse ox 95% on room air. NECK: Supple. LUNGS: With diminished breath sounds bilaterally. CARDIOVASCULAR: With a regular rate. ABDOMEN: Soft, nontender. EXTREMITIES: With no pitting edema. LABORATORY DATA: Reviewed. Rapid test for COVID negative. BUN 15, creatinine 1.1. White cell count 7.0, hemoglobin 15.2, platelets are 254. IMPRESSION: 1. Dyspnea with orthopnea in a patient who has bilateral pleural effusions, which are moderate in size. Etiology likely related to her cardiomyopathy with an EF of 25% and moderate mitral regurgitation. 2. Abnormal CT chest with bilateral pleural effusions, which are likely contributed by severe cardiomyopathy and moderate mitral regurgitation. 3. History of breast cancer, status post mastectomy on the left. She is supposed to be in remission. Clinically, less likely malignant effusion. 4. Less likely thromboembolic disease. RECOMMENDATIONS: 1. Discussed with the patient. She is agreeable to proceed with thoracentesis. 2. We will also review analysis of the fluid as well as cytology. 3. Optimization of cardiac status per Cardiology. Her mitral valve would be the culprit. 4. We will follow chest x-ray post-thoracentesis. 5. Continue present diuresis and monitor renal function closely. 6. Discussed with the patient's , will follow along with you. PHYLLIS DR: Annita TID: [id number]
[2021-07-20 11:56] LABS: PROTHROMBIN TIME PATIENT 14.3 SEC (11.7-14.0)
--- NOTE | 2021-07-20 11:57 | HP ---
DATE OF SERVICE: 07/20/2021 ADMIT DATE: 07/19/2021 CHIEF COMPLAINT: Dyspnea, orthopnea. HISTORY OF PRESENT ILLNESS: A 71-year-old black female with known prior breast cancer and takes anastrozole per Oncology, has been known to have nonischemic cardiomyopathy with ejection fraction most recently of 25%. She is followed by Dr. Dowling. She has been taking her meds, but is unsure how much furosemide that she takes or if she takes it daily. For the last 1-2 weeks, she has had increasing orthopnea, exertional dyspnea, dry cough, but no sputum, fever, chest pain or other complaints. Chest x-ray in ER shows left pleural effusion . She has gotten one dose of IV Lasix and is doing better at this point. Previous cardiac cath showed no coronary artery disease, it is presumed that her cardiomyopathy is due to previous IV therapy regimen of unknown type. PAST MEDICAL HISTORY: Current meds listed per the chart. She had a recent echo, which apparently showed a similar ejection fraction of about 25%. ALLERGIES: No allergies are known. SOCIAL HISTORY: , nondrinker, nonsmoker, retired. FAMILY HISTORY: Unremarkable. REVIEW OF SYSTEMS: Unremarkable. PHYSICAL EXAMINATION: ENT: All within normal limits. NECK: No masses, nodes or thyroid enlargement. No JVD is noted. CARDIOVASCULAR: Regular rate. No irregular beat, murmur or tachycardia or S3. LUNGS: Decreased breath sounds bilaterally with bilateral hematoma dullness to percussion. ABDOMEN: Benign and nontender. EXTREMITIES: Only 1+ pretibial edema. Pedal pulses are reduced consistent with lower blood pressure . NEUROLOGIC: Physiologic, nonfocal. ASSESSMENT: Nonischemic cardiomyopathy with bilateral pleural effusions, likely cardiogenic in origin. PLAN: Continue IV Lasix and add potassium. Cardiac consultation ordered the Lovenox prophylaxis for now. DELIA/KATIE/MOH DR: DELIA/gumaro TID: [id number]
[2021-07-20] MEDS: FUROSEMIDE 40 MG/4 ML VIAL. IVP SCH (14:14)
[2021-07-21] VITALS (7 sets, daily range): BP systolic 97–159; BP diastolic 48–91
[2021-07-21] MEDS ORDERED: ASPIRIN CHEWABLE 81 MG TABLET. PO SCH (08:00)
[2021-07-21] MEDS: POTASSIUM CHLORIDE 10 MEQ TABLET.ER. PO SCH ×3 (08:07→16:00)
[2021-07-21] MEDS: EMPAGLIFLOZIN 10 MG TABLET. PO SCH (08:08)
[2021-07-21] MEDS: DULoxetine HCL 30 MG CAPSULE.DR PO SCH (08:08)
[2021-07-21] MEDS: ANASTROZOLE 1 MG TABLET PO SCH (08:11)
[2021-07-21] MEDS: FUROSEMIDE 40 MG/4 ML VIAL. IVP SCH (08:15)
[2021-07-21] MEDS: ENOXAPARIN 40 MG/0.4 ML SYRINGE. SQ SCH (08:15)
[2021-07-21 08:38] LABS: CALCIUM 9.5 mg/dL (8.5-10.1); GFR 65.8; POTASSIUM 3.5 mmol/L (3.5-5.1)
--- NOTE | 2021-07-21 08:39 | PDOC ---
PULMONARY PROGRESS NOTES DATE: 07/21/21 TIME: 08:38 Subjective Patient feels better. Status post left thoracentesis. 1 L of fluid removed. Vitals Vital Signs Date Time Temp Pulse Resp B/P (MAP) Pulse Ox O2 Delivery O2 Flow Rate FiO2 07/21/21 08:00 Room Air 07/21/21 07:00 97.8 71 18 131/58 (82) 98 97.8 General: Alert, No acute distress Lungs: Other (Decreased at the right base) Cardiovascular: S1, S2 Abdomen: Soft Extremities: No Edema Skin: Warm Labs Laboratory Tests Test 07/19/21 17:10 07/19/21 17:21 07/20/21 05:30 07/20/21 07:01 SARS-CoV-2 Antigen (Rapid) Negative (NEGATIVE) White Blood Count 8.2 x10^3/uL (4.0-11.0) 7.0 x10^3/uL (4.0-11.0) Red Blood Count 5.06 x10^6/uL (3.50-5.40) 4.85 x10^6/uL (3.50-5.40) Hemoglobin 15.7 g/dL (12.0-15.5) 15.2 g/dL (12.0-15.5) Hematocrit 48.4 % (36.0-47.0) 47.2 % (36.0-47.0) Mean Corpuscular Volume 96 fL (79-100) 97 fL (79-100) Mean Corpuscular Hemoglobin 31 pg (25-35) 31 pg (25-35) Mean Corpuscular Hemoglobin Concent 32 g/dL (31-37) 32 g/dL (31-37) Red Cell Distribution Width 16.2 % (11.5-14.5) 16.5 % (11.5-14.5) Platelet Count 277 x10^3/uL (140-400) 254 x10^3/uL (140-400) Neutrophils (%) (Auto) 62 % (31-73) 51 % (31-73) Lymphocytes (%) (Auto) 29 % (24-48) 39 % (24-48) Monocytes (%) (Auto) 8 % (0-9) 9 % (0-9) Eosinophils (%) (Auto) 1 % (0-3) 1 % (0-3) Basophils (%) (Auto) 1 % (0-3) 0 % (0-3) Neutrophils # (Auto) 5.1 x10^3/uL (1.8-7.7) 3.5 x10^3/uL (1.8-7.7) Lymphocytes # (Auto) 2.4 x10^3/uL (1.0-4.8) 2.7 x10^3/uL (1.0-4.8) Monocytes # (Auto) 0.7 x10^3/uL (0.0-1.1) 0.6 x10^3/uL (0.0-1.1) Eosinophils # (Auto) 0.0 x10^3/uL (0.0-0.7) 0.1 x10^3/uL (0.0-0.7) Basophils # (Auto) 0.0 x10^3/uL (0.0-0.2) 0.0 x10^3/uL (0.0-0.2) Sodium Level 139 mmol/L (136-145) 141 mmol/L (136-145) Potassium Level 4.5 mmol/L (3.5-5.1) 3.5 mmol/L (3.5-5.1) Chloride Level 104 mmol/L (98-107) 105 mmol/L (98-107) Carbon Dioxide Level 22 mmol/L (21-32) 22 mmol/L (21-32) Anion Gap 13 (6-14) 14 (6-14) Blood Urea Nitrogen 17 mg/dL (7-20) 15 mg/dL (7-20) Creatinine 1.0 mg/dL (0.6-1.0) 1.1 mg/dL (0.6-1.0) Estimated GFR (Cockcroft-Gault) 65.8 58.9 BUN/Creatinine Ratio 17 (6-20) 14 (6-20) Glucose Level 118 mg/dL (70-99) 79 mg/dL (70-99) Calcium Level 9.9 mg/dL (8.5-10.1) 9.6 mg/dL (8.5-10.1) Total Bilirubin 1.6 mg/dL (0.2-1.0) 1.6 mg/dL (0.2-1.0) Aspartate Amino Transf (AST/SGOT) 41 U/L (15-37) 33 U/L (15-37) Alanine Aminotransferase (ALT/SGPT) 99 U/L (14-59) 90 U/L (14-59) Alkaline Phosphatase 87 U/L (46-116) 76 U/L (46-116) GY-Lmz-E-Type Natriuretic Peptide 5551 pg/mL (0-124) Total Protein 7.0 g/dL (6.4-8.2) 6.4 g/dL (6.4-8.2) Albumin 3.7 g/dL (3.4-5.0) 3.4 g/dL (3.4-5.0) Albumin/Globulin Ratio 1.1 (1.0-1.7) 1.1 (1.0-1.7) Platelet Estimate Adequate (ADEQUATE) Large Platelets Few Giant Platelets Few Anisocytosis Present Thyroid Stimulating Hormone (TSH) 1.124 uIU/mL (0.358-3.74) Glucose (Fingerstick) 84 mg/dL (70-99) Test 07/20/21 11:15 Prothrombin Time 14.3 SEC (11.7-14.0) Prothromb Time International Ratio 1.1 (0.8-1.1) Laboratory Tests Test 07/20/21 11:15 Prothrombin Time 14.3 SEC (11.7-14.0) Prothromb Time International Ratio 1.1 (0.8-1.1) Medications Active Scripts Medications Dose Route/Sig Max Daily Dose Days Date Category Potassium Chloride (Potassium Chloride) 20 Meq Tablet.er 20 Meq PO DAILY PRN 06/15/21 Reported Lasix (Furosemide) 40 Mg Tablet 1 Tab PO DAILY PRN 30 06/15/21 Reported Metoprolol Succinate ( Xl ) (Metoprolol Succinate) 25 Mg Tab.er.24h 50 Mg PO DAILY 06/15/21 Reported Daily Value (Multivitamin) 1 Each Tablet 1 Tab PO DAILY 30 06/15/21 Reported Fortine 3 Fish Oil Softgel (Fortine-3 Fatty Acids/Fish Oil) 1 Each Capsule.dr 1 Each PO DAILY 06/15/21 Reported Jardiance (Empaglifozin) 10 Mg Tablet 10 Mg PO DAILY 06/15/21 Reported Aspirin 81 Mg Tab.chew 81 Mg PO DAILYWBKFT 30 03/01/21 Rx Aldactone (Spironolactone) 25 Mg Tablet 25 Mg PO DAILY 30 03/01/21 Rx Lisinopril 10 Mg Tablet 5 Mg PO DAILY 30 03/01/21 Rx Cymbalta (Duloxetine Hcl) 60 Mg Capsule.dr 60 Mg PO DAILY 10/29/19 Reported Arimidex (Anastrozole) 1 Mg Tablet 1 Mg PO DAILY 10/29/19 Reported Impression . 1. Dyspnea with orthopnea in a patient who has bilateral pleural effusions, which are moderate in size. Etiology likely related to her cardiomyopathy with an EF of 25% and moderate mitral regurgitation. 2. Abnormal CT chest with bilateral pleural effusions, which are likely contributed by severe cardiomyopathy and moderate mitral regurgitation. 3. History of breast cancer, status post mastectomy on the left. She is supposed to be in remission. Clinically, less likely malignant effusion. 4. Less likely thromboembolic disease. Plan . RECOMMENDATIONS: 1. Discussed with the patient. Status post left thoracentesis. Clinically better. She will benefit from right thoracentesis as well. 2. We will also review analysis of the fluid as well as cytology. 3. Optimization of cardiac status per Cardiology. Her mitral valve would be the culprit. 4. We will follow chest x-ray post-thoracentesis. 5. Continue present diuresis and monitor renal function closely. 6. Discussed with the patient's , discussed with interventional radiology. DANIELLE MILLS MD Jul 21, 2021 08:39
--- NOTE | 2021-07-21 09:00 | PDOC ---
Provider Note Date of Service: DATE: 07/21/21 TIME: 08:58 Provider Note will go to po lasix now, will need lasix qod at least from now on as discussed, can dc after thoracentesis when ok w/ cv Justifications for Admission Other Justification LEANDRA GUERRA MD Jul 21, 2021 08:59
[2021-07-21] MEDS: LISINOPRIL 10 MG TABLET PO SCH (10:10)
[2021-07-21] MEDS: SPIRONOLACTONE 25 MG TABLET PO SCH (10:10)
[2021-07-21] MEDS: METOPROLOL SUCC 24HR ER 25 MG TAB.ER.24H. PO SCH (10:11)
--- NOTE | 2021-07-21 11:32 | PDOC ---
CARDIOLOGY PROGRESS NOTE SUBJECTIVE: Patient is a 71 yo female admitted for SOB x2-3 weeks. Denies CP or palpitations but states symptoms are worsened with exertion. Endorses associated decreased appetite and orthopnea. Reports nonproductive cough x3 weeks. No known trigger, denies recent fever, chills, or recent illness. History of MR, NICM, CHF, and HTN. Bilateral pleural effusions seen on CXR. Bilateral thoracentesis was performed, with 1L removed from L side. Today patient reports she is feeling much better, states her SOB has resolved and denies any pain or other complaints. OBJECTIVE: Vital Signs/I&O: Vital Signs Date Time Temp Pulse Resp B/P (MAP) Pulse Ox O2 Delivery O2 Flow Rate FiO2 07/21/21 10:11 95 151/65 07/21/21 09:31 98 07/21/21 08:00 Room Air 07/21/21 07:00 97.8 18 97.8 I & O 07/20/21 07/20/21 07/21/21 15:00 23:00 07:00 Intake Total 120 ml 120 ml Output Total 1050 ml Balance -930 ml 120 ml Objective: The patient appeared well nourished and normally developed. Head exam is unremarkable. No scleral icterus or corneal arcus noted. Neck is without jugular venous distension, thyromegaly, or carotid bruits. Carotid upstrokes are brisk bilaterally. Lungs are clear to auscultation and percussion. Cardiac exam reveals the PMI to be normally sized and situated. Rhythm is reg ular. First and second heart sounds normal. No murmurs, rubs or gallops. Abdominal exam reveals normal bowel sounds, no masses, no organomegaly and no aortic enlargement. Extremities are nonedematous and both femoral and pedal pulses are normal. Msk: No traumua Neuro: No focal deficits CURRENT MEDICATIONS: Medications reviewed DIAGNOSTIC TESTING: Labs reviewed Labs: Laboratory Tests 07/21/21 06:15 Laboratory Tests Test 07/21/21 06:15 Sodium Level 141 mmol/L (136-145) Potassium Level 3.5 mmol/L (3.5-5.1) Chloride Level 103 mmol/L (98-107) Carbon Dioxide Level 24 mmol/L (21-32) Anion Gap 14 (6-14) Blood Urea Nitrogen 13 mg/dL (7-20) Creatinine 1.0 mg/dL (0.6-1.0) Estimated GFR (Cockcroft-Gault) 65.8 Glucose Level 88 mg/dL (70-99) Calcium Level 9.5 mg/dL (8.5-10.1) ASSESSMENT: 1. Chronic systolic heart failure and nonischemic cardiomyopathy with recurrent heart failure 2. Left bundle branch block PLAN: 1. Plan for continued treatment with goal-directed medical therapy. We will consider outpatient BiV ICD implantation, the patient and her are thinking about ICD implantation. We will also refer to [facility] for advanced heart failure therapies. Justicifation of Admission Dx: Justifications for Admission: Justification of Admission Dx: Yes HODA HDZ MD Jul 21, 2021 11:32
--- NOTE | 2021-07-21 12:42 | RAD ---
Right Thoracentesis 07/21/2021 9:19 AM Clinical History: Right pleural effusion. Technique: Relative benefits risks and alternatives were discussed with the patient and/or their rep resentative. Written informed consent was obtained. The patient was placed in seated position. A susan eout procedure was performed. Sonographic assessment demonstrates a large pleural effusion. A site for skin entry was selected, and subsequently prepped and draped using sterile barrier technique. 1% lidocaine without epinepherine was administered for local anesthesia to the skin and subcutaenous tissues. A 5 Kazakh sheathed needle was passed into the pleural space. Clear yellow fluid was aspirated and t he catheter was connected to a vacuum The catheter was removed and adequate hemostasis was obtained. A sterile dressing was applied. The patient tolerated the procedure well, without complications. Impression: Successful ultrasound guided right thoracentesis Electronically signed by: Michael Whitaker MD (07/21/2021 12:40 PM) [id number]
--- NOTE | 2021-07-21 12:42 | RAD ---
Left Thoracentesis 07/20/2021 11:34 AM Clinical History: Left pleural effusion. Technique: Relative benefits risks and alternatives were discussed with the patient and/or their rep resentative. Written informed consent was obtained. The patient was placed in seated position. A susan eout procedure was performed. Sonographic assessment demonstrates a large pleural effusion. A site for skin entry was selected, and subsequently prepped and draped using sterile barrier technique. 1% lidocaine without epinepherine was administered for local anesthesia to the skin and subcutaenous tissues. A 5 Turkish sheathed needle was passed into the pleural space. Clear yellow fluid was aspirated and t he catheter was connected to a vacuum. The catheter was removed and adequate hemostasis was obtained . A sterile dressing was applied. The patient tolerated the procedure well, without complications. Impression: Successful ultrasound guided left-sided thoracentesis Electronically signed by: Michael Whitaker MD (07/21/2021 12:40 PM) [id number]
--- NOTE | 2021-07-21 18:13 | NUR ---
PAtient educated on discharge instructions, furosemide, potassium, and redrawing labs per Nitesh verbal order. Patient IV and telemonitor discontinued by Carmencita NUÑEZ. Patient wheeled out to main entrance by Carmencita to in personal vehicle.
--- NOTE | 2021-07-21 20:54 | DS ---
DATE OF DISCHARGE: 07/21/2021 HOSPITAL SUMMARY: A 71-year-old black female with known moderately severe cardiomyopathy, felt likely due to chemotherapy as she has no coronary artery disease. She has had increasing orthopnea and exertional dyspnea and was found to have bilateral pleural effusions by CT scan. She was diuresed with IV Lasix with good results and had bilateral thoracentesis with about a liter taken off each side, the fluid looks transudative in nature and cytology is pending, but no sign of white cells or secondary infection. Laboratory studies were unremarkable. She has had excellent results from both diuresis and thoracentesis and has felt comfortable to be followed as an outpatient at this point. FINAL DIAGNOSES: 1. Bilateral pleural effusion secondary to dilated cardiomyopathy. 2. History of breast cancer. OPERATIONS AND PROCEDURES: Bilateral thoracentesis. COMPLICATIONS: None. CONSULTATION: Dr. Dowling and Interventional Radiology. DISPOSITION: She will start taking furosemide 40 mg daily now and follow in [address] Dowling will consider a defibrillator possibility given her pretty significant reduced ejection fraction per echo. Rest of meds remain the same and prognosis is guarded. DARLING/GEO DR: DELIA/gumaro TID: [id number]
[2021-07-22] MEDS ORDERED: FUROSEMIDE 40 MG TABLET. PO SCH (09:00)
--- NOTE | 2021-07-25 14:13 | PATHOLOGY ---
Note [facility] Accession Number: [id number] TESTS RESULT FLAG UNITS REF RANGE LAB Clinician Provided Cytology Information No. of containers..01 Other (Miscellaneous) Source: PLEURAL EFF DIAGNOSIS: PLEURAL EFF NEGATIVE FOR MALIGNANT CELLS. FOCALLY REACTIVE MESOTHELIAL CELLS ARE PRESENT. Signed out by: Zeke Holliday MD, Pathologist NPI- [id number] Performed by: Alexsandra Castellanos, Fuel Operator ([facility]) Gross description: 30 ML, YELLOW, CLEAR /LCS 07/25/2021 1023 Local FLAG LEGEND: L-Low Normal,H-High Normal,LL-Alert Low,HH-Alert High <-Panic Low,>-Panic High,A-Abnormal,AA-Critical Abnormal Performed at: [facility] [address] [place] [address] Escobar Prasad MD, [address] [facility] [address] [place] [address] Zeke Holliday MD, Specimen Comment: A courtesy copy of this report has been sent to [phone], [phone] Specimen Comment: [id number], Specimen Comment: Report sent to DR. MILLS, DR PÉREZ / DR GUERRA Specimen Comment: A duplicate report has been generated due to demographic updates. Performed at: [facility] [address], [place], [place] [id number] MD Escobar Prasad MD Phone: [phone]
== END 2021-07-21 18:13 | disposition home or self-care (01) | DRG 291 ==
LOC: ER 13:46 → 2 NORTH 19:00
PROVIDERS: ADMIT Family Medicine; ATTEND Family Medicine
PROC: 0W993ZZ Drainage of Right Pleural Cavity, Percutaneous Approach (ICD-10-PCS; principal; 2021-07-21)
PROC: 0W9B3ZZ Drainage of Left Pleural Cavity, Percutaneous Approach (ICD-10-PCS; 2021-07-21)
DX: I11.0 Hypertensive heart disease with heart failure (principal); J96.00 Acute respiratory failure, unspecified whether with hypoxia or hypercapnia; I50.23 Acute on chronic systolic (congestive) heart failure; J90 Pleural effusion, not elsewhere classified; J98.11 Atelectasis; I42.0 Dilated cardiomyopathy; C50.919 Malignant neoplasm of unspecified site of unspecified female breast; E11.9 Type 2 diabetes mellitus without complications; I34.0 Nonrheumatic mitral (valve) insufficiency; I44.7 Left bundle-branch block, unspecified; I48.0 Paroxysmal atrial fibrillation; Z79.811 Long term (current) use of aromatase inhibitors; Z85.3 Personal history of malignant neoplasm of breast; Z90.11 Acquired absence of right breast and nipple; Z90.710 Acquired absence of both cervix and uterus; G62.9 Polyneuropathy, unspecified; M19.90 Unspecified osteoarthritis, unspecified site; Z20.822 Contact with and (suspected) exposure to COVID-19; Z88.8 Allergy status to other drugs, medicaments and biological substances
CPT/HCPCS: 32555; 36415; 71045; 71260; 80048; 80053; 82962; 83615; 83735; 83880; 84157; 84443; 85025; 85610; 87075; 87426; 93005; 96374; J1650; J1940; Q9967; 99285-25; G0378